=== PATIENT | female | born 1985 | race Caucasian/White ===

== ENCOUNTER 2017-05-10 14:44 | Emergency (ER) | payer SELFPAY ==
[2017-05-10] MEDS ORDERED: AZITHROMYCIN 250 MG TABLET PO ONE (14:56)
[2017-05-10] MEDS ORDERED: CEFTRIAXONE INJ 250 MG VIAL IM ONE (14:56)
--- NOTE | 2017-05-10 14:58 | ER Document Report ---
ED GI/ - General Chief Complaint: Urinary Problem Stated Complaint: URINARY PAIN Time Seen by Provider: 05/10/17 14:52 Mode of Arrival: Ambulatory Information source: Patient TRAVEL OUTSIDE OF THE [place] IN LAST 30 DAYS: No - HPI Patient complains to provider of: Dysuria, Pelvic pain Onset: Other - 2-3 days Timing/Duration: Persistent Quality of pain: Achy, Burning Severity at maximum: Moderate Severity in ED: Moderate Pain Level: 3 Location: Suprapubic Associated symptoms: Dysuria, Urinary frequency Exacerbated by: Denies Relieved by: Denies Similar symptoms previously: No Recently seen / treated by doctor: No Notes: 05/10/17 14:57 Patient is a 31-year-old female who presents to the emergency room complaining of one-week history of dysuria with urinary frequency and hesitancy, states she recently had unprotected sex but denies any abnormal vaginal discharge, denies any fevers, no nausea, vomiting or diarrhea - Related Data Allergies/Adverse Reactions: ondansetron HCl [From Zofran] Allergy (Verified 05/10/17 14:51) Past Medical History - General Information source: Patient - Social History Smoking Status: Current Every Day Smoker Family History: Reviewed & Not Pertinent - Past Medical History Cardiac Medical History: Pulmonary Medical History: Neurological Medical History: Renal/ Medical History: Reports: Hx Kidney Stones - Required lithotripsy. Denies: Hx Peritoneal Dialysis Musculoskeltal Medical History: Past Surgical History: Reports: Hx Abdominal Surgery - gastroschesis, Hx Appendectomy - Immunizations Hx Diphtheria, Pertussis, Tetanus Vaccination: Yes Review of Systems - Review of Systems Constitutional: No symptoms reported EENT: No symptoms reported Cardiovascular: No symptoms reported Respiratory: No symptoms reported Gastrointestinal: No symptoms reported Genitourinary: See HPI Female Genitourinary: No symptoms reported Musculoskeletal: No symptoms reported Skin: No symptoms reported Hematologic/Lymphatic: No symptoms reported Neurological/Psychological: No symptoms reported -: Yes All other systems reviewed and negative Physical Exam - Vital signs Vitals: Temp Pulse Resp BP Pulse Ox 97.9 F 87 16 132/89 H 99 05/10/17 14:49 05/10/17 14:49 05/10/17 14:49 05/10/17 14:49 05/10/17 14:49 - Notes Notes: - General General appearance: Appears well, Alert In distress: None - HEENT Head: Normocephalic, Atraumatic Eyes: Normal Conjunctiva: Normal Extraocular movements intact: Yes Eyelashes: Normal Pupils: PERRL - Respiratory Respiratory status: No respiratory distress - Cardiovascular Rhythm: Regular - Abdominal Inspection: Soft and nontender - Back Back: Normal, no CVA tenderness - Extremities General upper extremity: Normal inspection General lower extremity: Normal inspection - Neurological Neuro grossly intact: Yes Orientation: AAOx4 Pearce Coma Scale Eye Opening: Spontaneous César Coma Scale Verbal: Oriented César Coma Scale Motor: Obeys Commands César Coma Scale Total: 15 - Psychological Associated symptoms: Normal affect, Normal mood - Skin Skin Temperature: Warm Skin Moisture: Dry Skin Color: Normal Course - Re-evaluation Re-evalutation: 05/10/17 20:04 Lab findings were discussed with patient which are consistent for urinary tract infection, she was also treated for sexually transmitted diseases at her request , patient was discharged with instructions for follow-up and advised to return if any additional concerns, patient acknowledges understanding and agreement with this plan - Vital Signs Vital signs: Temp Pulse Resp BP Pulse Ox 97.7 F 65 16 127/88 H 100 05/10/17 16:07 05/10/17 16:07 05/10/17 16:07 05/10/17 16:07 05/10/17 16:07 - Laboratory Laboratory results interpreted by me: 05/10/17 15:13 Ur Leukocyte Esterase TRACE H Discharge - Discharge Clinical Impression: UTI (urinary tract infection) Qualifiers: Urinary tract infection type: site unspecified Hematuria presence: without hematuria Qualified Code(s): N39.0 - Urinary tract infection, site not specified Condition: Stable Disposition: HOME, SELF-CARE Instructions: Cephalexin ([facility]), Urinary Tract Infection ([facility]) Additional Instructions: Follow up with your primary care provider in one to 2 days. Return to the emergency room immediately if symptoms worsen or any additional concerns. Prescriptions: Cephalexin Monohydrate [Keflex 500 mg Capsule] 500 mg PO BID #20 capsule
[2017-05-10 15:43] LABS: APPEARANCE,URINE CLOUDY; BILIRUBIN,URINE NEGATIVE (NEGATIVE); GLUCOSE, URINE NEGATIVE (NEGATIVE); KETONES,URINE NEGATIVE (NEGATIVE); LEUKOCYTE ESTERASE,URINE TRACE (NEGATIVE); NITRITE,URINE NEGATIVE (NEGATIVE); PROTEIN,URINE NEGATIVE (NEGATIVE); URINE SPECIFIC GRAVITY 1.014; UROBILINOGEN,URINE NEGATIVE mg/dL (<2.0)
[2017-05-10 16:12] VITALS: BP 127/88
[2017-05-10 17:05] LABS: CHLAM PCR NOT DETECTED (NOT DETECT)
== END 2017-05-10 16:08 | disposition home or self-care (01) ==
LOC: ER 14:44
DX: N39.0 Urinary tract infection, site not specified (principal); F17.200 Nicotine dependence, unspecified, uncomplicated
CPT/HCPCS: 99283; 96372; 87086; 81025; 81001; 87491; 87591; J0696

== ENCOUNTER 2018-02-28 19:20 | Emergency (ER) | payer MEDICAID ==
[2018-02-28] MEDS ORDERED: NORMAL SALINE 1000 ML 1,000 ML IV ONE (20:03)
[2018-02-28] MEDS ORDERED: PROMETHAZINE HCL 25 MG TABLET PO ONE ×2 (20:04→21:34)
--- NOTE | 2018-02-28 20:05 | ER Document Report ---
ED Medical Screen (RME) - General Chief Complaint: Possible Kidney Stone Stated Complaint: LOWER BACK PAIN Time Seen by Provider: 02/28/18 20:03 Mode of Arrival: Ambulatory Information source: Patient Notes: This is a 32-year-old female with a history of kidney stones who presents to the emergency room with left flank pain for the past 5 days. Patient denies any fever, chills. She does complain of nausea. Her last normal menstrual period was approximately a month ago she states she may be . TRAVEL OUTSIDE OF THE [place] IN LAST 30 DAYS: No - Related Data Allergies/Adverse Reactions: ondansetron HCl [From Zofran] Allergy (Verified 05/10/17 14:51) Past Medical History - Social History Family history: Reviewed & Not Pertinent - Past Medical History Cardiac Medical History: Pulmonary Medical History: Neurological Medical History: Renal/ Medical History: Reports: Hx Kidney Stones - Required lithotripsy. Denies: Hx Peritoneal Dialysis Musculoskeltal Medical History: Past Surgical History: Reports: Hx Abdominal Surgery - gastroschesis, Hx Appendectomy - Immunizations Hx Diphtheria, Pertussis, Tetanus Vaccination: Yes Physical Exam - Vital signs Vitals: Temp Pulse Resp BP Pulse Ox 98.0 F 68 16 153/98 H 97 02/28/18 19:47 02/28/18 19:47 02/28/18 19:47 02/28/18 19:47 02/28/18 19:47 Course - Vital Signs Vital signs: Temp Pulse Resp BP Pulse Ox 98.0 F 68 16 153/98 H 97 02/28/18 19:47 02/28/18 19:47 02/28/18 19:47 02/28/18 19:47 02/28/18 19:47
[2018-02-28 21:00] LABS: ABSOLUTE BASOPHILS # (AUTO) 0.1 10^3/uL (0.0-0.2); ABSOLUTE EOSINOPHILS # (AUTO) 0.2 10^3/uL (0.0-0.6); ABSOLUTE LYMPHOCYTES (AUTO) 3.4 10^3/uL (0.5-4.7); ABSOLUTE MONOCYTES (AUTO) 0.7 10^3/uL (0.1-1.4); ABSOLUTE NEUT (AUTO) 6.2 10^3/uL (1.7-8.2); BASOPHILS % (AUTO) 0.5 % (0-2); EOSINOPHILS % (AUTO) 2.3 % (0-6); HEMATOCRIT 39.7 % (36.0-47.0); HEMOGLOBIN 13.7 g/dL (12.0-15.5); LYMPHOCYTES % (AUTO) 31.7 % (13-45); MEAN CORPUSCULAR HEMOGLOBIN 30.7 pg (27.0-33.4); MEAN CORPUSCULAR HGB CONC 34.5 g/dL (32.0-36.0); MEAN CORPUSCULAR VOLUME 89 fl (80-97); MONOCYTES % (AUTO) 6.9 % (3-13); PLATELET COUNT 313 10^3/uL (150-450); RED BLOOD COUNT 4.46 10^6/uL (3.72-5.28); RED CELL DISTRIBUTION WIDTH 15.9 % (11.5-14.0); SEGMENTED NEUTROPHILS % (AUTO) 58.6 % (42-78); TOTAL CELLS COUNTED % (AUTO) 100 %; WHITE BLOOD COUNT 10.7 10^3/uL (4.0-10.5)
[2018-02-28 21:05] LABS: APPEARANCE,URINE SLIGHTLY-CLOUDY; BILIRUBIN,URINE NEGATIVE (NEGATIVE); COLOR,URINE YELLOW; GLUCOSE, URINE NEGATIVE (NEGATIVE); KETONES,URINE NEGATIVE (NEGATIVE); LEUKOCYTE ESTERASE,URINE TRACE (NEGATIVE); NITRITE,URINE NEGATIVE (NEGATIVE); PROTEIN,URINE NEGATIVE (NEGATIVE); URINE SPECIFIC GRAVITY 1.018
[2018-02-28 21:20] LABS: ALANINE AMINOTRANSFERASE 20 U/L (9-52); ALBUMIN 4.1 g/dL (3.5-5.0); ALKALINE PHOSPHATASE 76 U/L (38-126); ANION GAP 8 (5-19); ASPARTATE AMINO TRANSFERASE 23 U/L (14-36); BILIRUBIN,DIRECT 0.3 mg/dL (0.0-0.4); BILIRUBIN,TOTAL 0.3 mg/dL (0.2-1.3); BLOOD UREA NITROGEN 14 mg/dL (7-20); CALCIUM 9.7 mg/dL (8.4-10.2); CARBON DIOXIDE 26 mmol/L (22-30); CHLORIDE 105 mmol/L (98-107); GLUCOSE 89 mg/dL (75-110); POTASSIUM 4.3 mmol/L (3.6-5.0); SODIUM 139.1 mmol/L (137-145); TOTAL PROTEIN 6.7 g/dL (6.3-8.2)
[2018-02-28] MEDS ORDERED: KETOROLAC TROMETHAMINE INJ/PF 30 MG/1 ML SDV IV ONE (21:34)
[2018-02-28] MEDS ORDERED: SULFAMETHOXAZOLE/TRIMETHOPRIM 800-160 MG TABLET PO ONE (21:34)
[2018-02-28] MEDS ORDERED: HYDROMORPHONE HCL INJ/PF 2 MG/ML AMPULE IV ONE ×2 (21:35→22:18)
--- NOTE | 2018-02-28 21:40 | ER Document Report ---
ED General - General Chief Complaint: Possible Kidney Stone Stated Complaint: LOWER BACK PAIN Time Seen by Provider: 02/28/18 20:03 Mode of Arrival: Ambulatory Information source: Patient Notes: 32-year-old female with history of gastroschisis, previous kidney stones, previous prescription drug abuse, chronic back pain presents with complaint of left flank pain that started 5 days prior to arrival. Patient describes the pain as constant, throbbing and not relieved with Tylenol. Patient states that she last had a kidney stone approximately 2 years prior to arrival which required lithotripsy. Patient also complaining of dysuria that also started 5 days prior to arrival. She denies any fever, chills, nausea, vomiting, vaginal discharge. She denies any injury to her back. TRAVEL OUTSIDE OF THE [place] IN LAST 30 DAYS: No - HPI Onset: Other Onset/Duration: Sudden, Persistent, Worse Quality of pain: Burning, Stabbing, Throbbing Severity: Moderate Associated symptoms: denies: Chest pain, Nausea, Vomiting Exacerbated by: Movement Relieved by: Denies Similar symptoms previously: Yes Recently seen / treated by doctor: No - Related Data Allergies/Adverse Reactions: ondansetron HCl [From Zofran] Allergy (Verified 05/10/17 14:51) Past Medical History - General Information source: Patient - Social History Smoking Status: Current Every Day Smoker Chew tobacco use (# tins/day): No Smoking Education Provided: Yes - Patient counselled regarding cessation for 4 minutes Frequency of alcohol use: Occasional Drug Abuse: None Lives with: Spouse/Significant other Family History: Reviewed & Not Pertinent Patient has suicidal ideation: No Patient has homicidal ideation: No - Past Medical History Cardiac Medical History: Pulmonary Medical History: Neurological Medical History: Renal/ Medical History: Reports: Hx Kidney Stones - Required lithotripsy. Denies: Hx Peritoneal Dialysis Musculoskeltal Medical History: Past Surgical History: Reports: Hx Abdominal Surgery - gastroschesis, Hx Appendectomy - Immunizations Hx Diphtheria, Pertussis, Tetanus Vaccination: Yes Review of Systems - Review of Systems Notes: REVIEW OF SYSTEMS: CONSTITUTIONAL : Denies fever, chills, or sweats. Denies recent illness. Denies weight loss, recent hospitalizations. EENT: Denies visula changes, eye pain. Denies nasal or sinus congestion or discharge. Denies sore throat, oral lesions, difficulty swallowing. CARDIOVASCULAR: Denies chest pain. Denies palpitations or racing or irregular heart beat. Denies lower extremity edema. RESPIRATORY: Denies cough, cold, or chest congestion. Denies shortness of breath, difficulty breathing, or wheezing. GASTROINTESTINAL: Denies abdominal distention. Denies nausea, vomiting, or diarrhea. Denies blood in vomitus, stools, or per rectum. Denies black, tarry stools. Denies constipation. GENITOURINARY: Denies difficulty urinating, frequency, blood in urine, or vaginal discharge. MUSCULOSKELETAL: Denies neck pain or stiffness. Denies joint pain or swelling. SKIN: Denies rash, lesions or sores. HEMATOLOGIC : Denies easy bruising or bleeding. LYMPHATIC: Denies swollen, enlarged glands. NEUROLOGICAL: Denies confusion or altered mental status. Denies passing out or loss of consciousness. Denies dizziness or lightheadedness. Denies headache. Denies weakness or paralysis or loss of use of either side. Denies problems with gait or speech. Denies sensory loss, numbness, or tingling. Denies seizures. PSYCHIATRIC: Denies anxiety or stress. Denies depression, suicidal ideation, or homicidal ideation. Physical Exam - Vital signs Vitals: Temp Pulse Resp BP Pulse Ox 98.0 F 68 16 153/98 H 97 02/28/18 19:47 02/28/18 19:47 02/28/18 19:47 02/28/18 19:47 02/28/18 19:47 Interpretation: Normal, Hypertensive. No: Febrile - Notes Notes: PHYSICAL EXAMINATION: GENERAL: Well-appearing, well-nourished and in no acute distress. HEAD: Atraumatic, normocephalic. EYES: Pupils equal round and reactive to light, extraocular movements intact, conjunctiva are normal. ENT: Nares patent, oropharynx clear without exudates. Moist mucous membranes. NECK: Normal range of motion, supple without lymphadenopathy LUNGS: Breath sounds clear to auscultation bilaterally and equal. No wheezes rales or rhonchi. HEART: Regular rate and rhythm without murmurs ABDOMEN: Soft, nontender, nondistended abdomen. No guarding, no rebound. No masses appreciated. Female : deferred Musculoskeletal: Normal range of motion, no pitting or edema. No cyanosis. Left CVA tenderness NEUROLOGICAL: Cranial nerves grossly intact. Normal speech, normal gait. Normal sensory, motor exams PSYCH: Normal mood, normal affect. SKIN: Warm, Dry, normal turgor, no rashes or lesions noted. Course - Re-evaluation Re-evalutation: Laboratory 02/28/18 02/28/18 02/28/18 20:08 20:08 20:08 WBC 10.7 H RBC 4.46 Hgb 13.7 Hct 39.7 MCV 89 MCH 30.7 MCHC 34.5 RDW 15.9 H Plt Count 313 Seg Neutrophils % 58.6 Lymphocytes % 31.7 Monocytes % 6.9 Eosinophils % 2.3 Basophils % 0.5 Absolute Neutrophils 6.2 Absolute Lymphocytes 3.4 Absolute Monocytes 0.7 Absolute Eosinophils 0.2 Absolute Basophils 0.1 Sodium 139.1 Potassium 4.3 Chloride 105 Carbon Dioxide 26 Anion Gap 8 BUN 14 Creatinine 0.81 Est GFR ( Amer) > 60 Est GFR (Non-Af Amer) > 60 Glucose 89 Calcium 9.7 Total Bilirubin 0.3 Direct Bilirubin 0.3 Neonat Total Bilirubin Not Reportable Neonat Direct Bilirubin Not Reportable Neonat Indirect Bili Not Reportable AST 23 ALT 20 Alkaline Phosphatase 76 Total Protein 6.7 Albumin 4.1 Urine Color YELLOW Urine Appearance SLIGHTLY-CLOUDY Urine pH 5.0 Ur Specific Ulen 1.018 Urine Protein NEGATIVE Urine Glucose (UA) NEGATIVE Urine Ketones NEGATIVE Urine Blood NEGATIVE Urine Nitrite NEGATIVE Urine Bilirubin NEGATIVE Urine Urobilinogen 2.0 H Ur Leukocyte Esterase TRACE H Urine WBC (Auto) 12 Urine RBC (Auto) 1 U Hyaline Cast (Auto) 1 Urine Bacteria (Auto) TRACE Squamous Epi Cells Auto 3 Urine Mucus (Auto) OCC Urine Ascorbic Acid NEGATIVE Urine HCG, Qual NEGATIVE 02/28/18 21:39 32-year-old female with history of gastroschisis, previous kidney stone, chronic back pain, prescription drug abuse, presents with complaint of left flank pain that started 5 days prior to arrival. Patient describes the pain as constant, throbbing and not relieved with Tylenol. Patient states that she last had a kidney stone approximately 2 years prior to arrival which required lithotripsy. Patient also complaining of dysuria that also started 5 days prior to arrival. Patient was seen by myself upon arrival. Vital signs were reviewed. Patient is afebrile, hypertensive and not hypoxic. Patient does not appear toxic or dehydrated. They are in no acute distress. Previous medical records and nursing notes reviewed. Significant findings include left CVA tenderness. Bedside ultrasound performed to assess for hydro-nephrosis which is absent. Urinalysis does not show blood, does show trace leuk esterase. CBC is without leukocytosis. CMP is without electrolyte abnormalities. Patient has normal renal function. Patient was provided IV Toradol, Dilaudid, p.o. Phenergan and p.o. Bactrim. 02/28/18 22:18 On reevaluation patient reports an improvement of pain although she states it still present. There is no evidence of urolithiasis, hydronephrosis. Patient will be treated with Bactrim and Motrin, and flexeril for home. Patient provided the opportunity to ask questions, and express concerns. Discharge instructions discussed. Patient is agreeable with discharge home. Return indications explained and discussed with the patient who displays understanding. Patient encouraged to return to the emergency department immediately with any concerns. 02/28/18 23:52 - Vital Signs Vital signs: Temp Pulse Resp BP Pulse Ox 98.4 F 70 12 134/93 H 100 02/28/18 22:37 02/28/18 22:37 02/28/18 22:37 02/28/18 22:37 02/28/18 22:37 - Laboratory Result Diagrams: 02/28/18 20:08 02/28/18 20:08 Laboratory results interpreted by me: 02/28/18 02/28/18 20:08 20:08 WBC 10.7 H RDW 15.9 H Urine Urobilinogen 2.0 H Ur Leukocyte Esterase TRACE H Procedures - Ultrasound/Bedside Ultrasound/Bedside Time completed: 21:38 - Bedside ultrasound of the kidneys were performed to assess for hydronephrosis. No hydronephrosis seen. Discharge - Discharge Clinical Impression: Left flank pain UTI (urinary tract infection) Qualifiers: Urinary tract infection type: site unspecified Hematuria presence: without hematuria Qualified Code(s): N39.0 - Urinary tract infection, site not specified Condition: Good Disposition: HOME, SELF-CARE Instructions: Flank Pain ([facility]), Trimethoprim-Sulfa ([facility]), Urinary Tract Infection ([facility]) Additional Instructions: Follow up with your physician tomorrow for further care or return to the ED IMMEDIATELY if symptoms worsen or new concerns occur. If you cannot afford to follow up with your primary care physician a list of low cost clinics have been provided at the end of your discharge papers as well. Prescriptions: Cyclobenzaprine HCl [Flexeril 10 mg Tablet] 10 mg PO TIDP PRN #15 tab PRN Reason: Ibuprofen [Motrin 600 Mg Tablet] 600 mg PO TID #15 tablet Sulfamethoxazole/Trimethoprim [Bactrim Ds Tablet] 1 each PO BID #10 tablet Forms: Elevated Blood Pressure, Smoking Cessation Education Referrals: INDIRA FULLER MD [Primary Care Provider] - Follow up in 3-5 days
[2018-02-28 22:40] VITALS: BP 134/93
== END 2018-02-28 22:39 | disposition home or self-care (01) ==
LOC: ER 19:20
DX: N39.0 Urinary tract infection, site not specified (principal); R10.9 Unspecified abdominal pain; G89.29 Other chronic pain; M54.9 Dorsalgia, unspecified; F17.200 Nicotine dependence, unspecified, uncomplicated; Z87.442 Personal history of urinary calculi
CPT/HCPCS: 96376; 99406; 99284; 96361; 96374; 96375; 36415; 85025; 81025; 80053; 81001; J1885; J1170; J3490 ×2; J7030

== ENCOUNTER 2018-07-04 08:06 | Emergency (ER) | payer MEDICAID ==
[2018-07-04] MEDS ORDERED: NORMAL SALINE 500 ML IV ONE (08:44)
[2018-07-04 08:53] LABS: ABSOLUTE BASOPHILS # (AUTO) 0.1 10^3/uL (0.0-0.2); ABSOLUTE EOSINOPHILS # (AUTO) 0.1 10^3/uL (0.0-0.6); ABSOLUTE LYMPHOCYTES (AUTO) 2.2 10^3/uL (0.5-4.7); ABSOLUTE MONOCYTES (AUTO) 1.3 10^3/uL (0.1-1.4); ABSOLUTE NEUT (AUTO) 13.3 10^3/uL (1.7-8.2); BASOPHILS % (AUTO) 0.6 % (0-2); EOSINOPHILS % (AUTO) 0.7 % (0-6); HEMATOCRIT 48.4 % (36.0-47.0); HEMOGLOBIN 16.4 g/dL (12.0-15.5); LYMPHOCYTES % (AUTO) 13.2 % (13-45); MEAN CORPUSCULAR HGB CONC 33.9 g/dL (32.0-36.0); MEAN CORPUSCULAR VOLUME 91 fl (80-97); MONOCYTES % (AUTO) 7.4 % (3-13); PLATELET COUNT 355 10^3/uL (150-450); RED BLOOD COUNT 5.29 10^6/uL (3.72-5.28); RED CELL DISTRIBUTION WIDTH 13.7 % (11.5-14.0); SEGMENTED NEUTROPHILS % (AUTO) 78.1 % (42-78); TOTAL CELLS COUNTED % (AUTO) 100 %
[2018-07-04] MEDS ORDERED: HYDROMORPHONE HCL INJ/PF 2 MG/ML AMPULE IV ONE ×3 (08:55→18:58)
[2018-07-04] MEDS ORDERED: PROMETHAZINE HCL INJ 25 MG/1 ML VIAL IV ONE ×2 (08:55→18:58)
[2018-07-04] MEDS ORDERED: NORMAL SALINE 1000 ML 1,000 ML IV PRN (08:56)
[2018-07-04 09:19] LABS: ALANINE AMINOTRANSFERASE 17 U/L (9-52); ALBUMIN 4.7 g/dL (3.5-5.0); ALKALINE PHOSPHATASE 85 U/L (38-126); ANION GAP 10 (5-19); ASPARTATE AMINO TRANSFERASE 25 U/L (14-36); BILIRUBIN,DIRECT 0.3 mg/dL (0.0-0.4); BILIRUBIN,TOTAL 0.8 mg/dL (0.2-1.3); BLOOD UREA NITROGEN 8 mg/dL (7-20); CALCIUM 10.5 mg/dL (8.4-10.2); CARBON DIOXIDE 25 mmol/L (22-30); CHLORIDE 106 mmol/L (98-107); GLUCOSE 121 mg/dL (75-110); LIPASE 38.5 U/L (23-300); POTASSIUM 4.3 mmol/L (3.6-5.0); SODIUM 141.1 mmol/L (137-145); TOTAL PROTEIN 7.6 g/dL (6.3-8.2)
[2018-07-04 11:52] LABS: AMORPHOUS SEDIMENT,URINE TRACE /HPF; APPEARANCE,URINE CLEAR; BILIRUBIN,URINE NEGATIVE (NEGATIVE); COLOR,URINE YELLOW; GLUCOSE, URINE NEGATIVE (NEGATIVE); KETONES,URINE 25 mg/dL (NEGATIVE); LEUKOCYTE ESTERASE,URINE NEGATIVE (NEGATIVE); NITRITE,URINE NEGATIVE (NEGATIVE); PROTEIN,URINE NEGATIVE (NEGATIVE); UROBILINOGEN,URINE NEGATIVE mg/dL (<2.0)
[2018-07-04 11:55] LABS: URINE SPECIFIC GRAVITY 1.018
--- NOTE | 2018-07-04 12:38 | RADIOLOGY REPORT (SQ) ---
EXAM DESCRIPTION: ACUTE ABDOMEN SERIES COMPLETED DATE/TIME: 07/04/2018 12:25 pm REASON FOR STUDY: sudden onsedt pain ? SBO VS perf/ HX gastosessis COMPARISON: CT abdomen pelvis 04/03/2016 Abdominal films 04/06/2016, 04/04/2016 NUMBER OF VIEWS: Three views. TECHNIQUE: Frontal chest, supine abdomen and upright abdomen radiographic images acquired. LIMITATIONS: None. FINDINGS: CHEST: Lungs clear of infiltrates. Cardiac silhouette size, margie, bony structures unremar kable. FREE AIR: None. No abnormal gas collections. BOWEL GAS PATTERN: Dilated small bowel loops in the mid abdomen. Stomach and colon are decompressed. CALCIFICATIONS: No suspicious calcifications. HARDWARE: There are surgical clips in the abdomen. SOFT TISSUES: No gross mass or suggestion of organomegaly. BONES: No acute fracture. No worrisome bone lesions. OTHER: No other significant finding. IMPRESSION: Dilated small bowel loops in the mid abdomen worrisome for early or partial small bowel obstruction TECHNICAL DOCUMENTATION: JOB ID: [id number] [employer]- All Rights Reserved Reading location - IP/workstation name: [email or web address]
--- NOTE | 2018-07-04 13:41 | ER Document Report ---
ED GI/ - General Chief Complaint: Abdominal Pain Stated Complaint: NAUSEA/VOMITING Time Seen by Provider: 07/04/18 08:50 Mode of Arrival: Ambulatory Notes: Patient is a 32-year-old female comes emergency room complaining of onset of abdominal pain which started yesterday. Has progressively gotten worse. She cannot find a position of comfort and she denies nausea vomiting or diarrhea at this time. Patient has had a cholecystectomy and appendectomy her last bowel movement was 2 days ago. She states that her bowel movements normally come about every 2 days she had a normal one for her. Last menstrual period was 1 week ago. Patient has a significant history for gastroschisis. She has multiple scars on the anterior abdomen. She has had a history of SBO's in the past. She denies any other medical problems. TRAVEL OUTSIDE OF THE [place] IN LAST 30 DAYS: No - HPI Patient complains to provider of: Abdominal pain Onset: Yesterday Timing/Duration: Sudden, Persistent, Worse Quality of pain: Achy, Throbbing Severity at maximum: Severe Severity in ED: Severe Pain Level: 4 Location: LUQ, LLQ, RUQ, RLQ Vaginal bleeding (Compared to normal period): None LMP: Last week Associated symptoms: None, Chills Exacerbated by: Denies Relieved by: Denies Similar symptoms previously: Yes Recently seen / treated by doctor: No - Related Data Allergies/Adverse Reactions: ondansetron HCl [From Zofran] Allergy (Verified 07/04/18 08:54) Past Medical History - General Information source: Patient - Social History Smoking Status: Current Every Day Smoker Chew tobacco use (# tins/day): No Frequency of alcohol use: None Drug Abuse: None Family History: Reviewed & Not Pertinent Patient has suicidal ideation: No Patient has homicidal ideation: No - Medical History Medical History: Negative - Past Medical History Cardiac Medical History: Pulmonary Medical History: Neurological Medical History: Renal/ Medical History: Reports: Hx Kidney Stones - Required lithotripsy. Denies: Hx Peritoneal Dialysis Musculoskeletal Medical History: Past Surgical History: Reports: Hx Abdominal Surgery - gastroschesis, Hx Appendectomy, Hx Cholecystectomy - Immunizations Hx Diphtheria, Pertussis, Tetanus Vaccination: Yes Review of Systems - Review of Systems Constitutional: No symptoms reported EENT: No symptoms reported Cardiovascular: No symptoms reported Respiratory: No symptoms reported Gastrointestinal: See HPI, Abdomen distended, Abdominal pain, Nausea. denies: Vomiting, Constipation Genitourinary: No symptoms reported Female Genitourinary: No symptoms reported Musculoskeletal: No symptoms reported Skin: No symptoms reported Hematologic/Lymphatic: No symptoms reported Neurological/Psychological: No symptoms reported -: Yes All other systems reviewed and negative Physical Exam - Vital signs Vitals: Temp Pulse Resp BP Pulse Ox 98.3 F 76 18 148/91 H 100 07/04/18 08:10 07/04/18 08:10 07/04/18 08:10 07/04/18 08:10 07/04/18 08:10 Interpretation: Hypertensive - Notes Notes: Patient is a well-nourished well-developed 32-year-old female who is in mild to moderate distress and discomfort. - General General appearance: Alert, Anxious In distress: Mild - HEENT Head: Atraumatic Eyes: Normal Conjunctiva: Normal - Respiratory Respiratory status: No respiratory distress Chest status: Nontender Breath sounds: Normal. No: Rales, Rhonchi, Stridor, Wheezing Chest palpation: Normal - Cardiovascular Rhythm: Regular Heart sounds: Normal auscultation Murmur: No - Abdominal Distension: Distended, Tympanitic, Other - Examination of patient's abdomen shows multiple scarring on the anterior portion of the abdomen all the way up to about the mid epigastric region. This is secondary to the gastroparesis. Patient has also history of small bowel obstructions secondary to the adhesions suffered from this type of surgery. Exam today shows that she is distended she is tympanic in all quads. Belly is somewhat firm but not rigid. She does have bowel sounds currently although there is exceptionally hypo-in their presentation. - Back Back: Normal, Nontender - Neurological Cognition: Normal Orientation: AAOx4 César Coma Scale Eye Opening: Spontaneous [place] Coma Scale Verbal: Oriented [place] Coma Scale Motor: Obeys Commands César Coma Scale Total: 15 Speech: Normal Motor strength normal: LUE, RUE, LLE, RLE Sensory: Normal Course - Re-evaluation Re-evalutation: 07/04/18 14:18 Patient's course has been pretty consistent. Her presentation was that of a small bowel obstruction. An acute abdominal series that showed that she has dilated small bowel loops in the mid abdomen worrisome for early or partial small bowel obstruction. I have not placed a NG tube secondary to patient not vomiting currently. I am going to attempt to call the hospitalist to see about admission without a CT. If he or she requests 1 we will run it and have her admitted then. 07/04/18 18:34 I had originally contacted the hospitalist for possible admission for a small bowel obstruction or partial small bowel obstruction with a white count of 17, 000 and a KUB that showed a questionable partial. They requested that I do a CT with contrast both oral and IV and if it was true bowel obstruction then to call them back. The CT came back as showing that there was no small bowel obstruction. I discussed it with my attending Dr. Snell he suggested that we just run this by the surgeon. I contacted Dr. Yeung and told him that I was not real familiar with gastroschisis and wanted to know what he thought then could he look at the CT. He looked at the CT and told me with out any question she does not have a small bowel obstruction. When I discussed the findings of the 17,000 white count with him he actually answered me he could not tell me because he was not seeing the patient which I understand. He asked if I got a urine and I answered yes that was okay and he said I cannot really tell you except in a light bulb went off in his head that he and a few other of his surgical friends have done exploratory laparotomies recently and they found nothing in no one check to see if there was any sense PID. Most of his patients that had this pain and discomfort had PID that was not checked for. So I went back into the room and discussed it with patient she said she does have a discharge that is worse than her waistline. I suggested that I be looking for chlamydia gonorrhea and vaginosis and she said there is no way because have been with him for ever and so she did allow us to do the pelvic exam. The results are pending on the chlamydia and gonorrhea and the bacterial vaginosis screens. We will further investigate if any of those come back positive. 07/04/18 19:37 It is now 1935 patient is been here for an extensive period of time. We did finally do a pelvic exam on patient and lab finally called telling us that there was trichomonas. I originally ordered for of the metronidazole 500 however on second thought that upsets his stomach very badly so patient is going to get treated outpatient for PID. I already ordered the gram of Rocephin as I cannot reduce it now to 250 because he is already been ordered and given. So I am going to add on metronidazole 500 mg twice daily for 14 days and doxycycline 100 mg p.o. for 14 days. This will cover her fairly well. She had originally told me there is no way this can happen when I went back into talk to her about it she did not seem real upset that this is what we found. This is probably was all causing her discomfort and pain 2. So we are treating her that way I will give her a couple of days of pain medication and nausea medication and she can follow-up with her primary. - Vital Signs Vital signs: Temp Pulse Resp BP Pulse Ox 98.3 F 76 18 148/91 H 100 07/04/18 08:10 07/04/18 08:10 07/04/18 08:10 07/04/18 08:10 07/04/18 08:10 - Laboratory Result Diagrams: 07/04/18 08:40 07/04/18 08:40 Laboratory results interpreted by me: 07/04/18 07/04/18 07/04/18 08:40 08:40 11:13 WBC 17.0 H RBC 5.29 H Hgb 16.4 H Hct 48.4 H Seg Neutrophils % 78.1 H Absolute Neutrophils 13.3 H Glucose 121 H Calcium 10.5 H Urine Ketones 25 H Urine Blood SMALL H Procedures - Pelvic Exam Pelvic exam Cultures obtained: Yes Wet prep obtained: Yes - Patient had a whitish slightly odiferous discharge. Herpes culture obtained: No POC sent to lab: Yes Foreign body removed: No Bimanual exam performed: Yes - Bimanual exam showed she had some very mild CMT Witnessed by: Rupali Notes: 07/04/18 18:3 07/04/18 18:33 Patient's pelvic exam showed that she had some very mild CMT. She had a white difference discharge that was questionable for a vaginosis type presentation. Patient tells me she has been monogamous with this gentleman for quite a while so she does not believe there is anything wrong. Discharge - Discharge Clinical Impression: PID (acute pelvic inflammatory disease), Abdominal pain Condition: Stable Instructions: Abdominal Pain ([facility]), Pelvic Inflammatory Disease ([facility]) Additional Instructions: Home and rest. Medication as prescribed. As of indicated to you the labs that we did of the pelvic exam came back showing that you have trichomonas. This is just one part of PID so we are deciding to treat you for all of PID which is gonorrhea chlamydia as well because the samples will be back until later this evening and to keep you here for that length of time anymore. Do not forget that no matter if it is just the trichomonas or more things like gonorrhea and chlamydia but all are curable but you both have to be treated. You are contagious even up to a week after starting the antibiotics. So you need to both be treated and at least wait a total of 2 weeks not have any sexual relations and then he should be okay and not spreading it back and forth. Should you have any concerns or problems she can return to ER for recheck. I highly suggest that you reestablish or follow-up with the [facility] if you have 1. Prescriptions: Doxycycline Hyclate 100 mg PO BID #14 capsule Metronidazole 500 mg PO BID #14 tablet Oxycodone HCl/Acetaminophen [Percocet 5-325 mg Tablet] 1 tab PO Q4H PRN #10 tablet PRN Reason: Promethazine HCl [Phenergan 25 mg Tablet] 1 - 2 tab PO Q6H PRN #15 tablet PRN Reason: Referrals: INDIRA FULLER MD [Primary Care Provider] - Follow up as needed
--- NOTE | 2018-07-04 17:42 | RADIOLOGY REPORT (SQ) ---
EXAM DESCRIPTION: CT ABD/PELVIS WITH IV ORAL COMPLETED DATE/TIME: 07/04/2018 4:54 pm REASON FOR STUDY: sbo COMPARISON: None. TECHNIQUE: CT scan of the abdomen and pelvis performed using helical scanning technique with dynamic intravenous contrast injection. Oral contrast. Images reviewed with lung, soft tissue, and bone win dows. Reconstructed coronal and sagittal MPR images reviewed. Delayed images for evaluation of the ur inary system also acquired. All images stored on PACS. All CT scanners at this facility use dose modulation, iterative reconstruction, and/or weight based d osing when appropriate to reduce radiation dose to as low as reasonably achievable (ALARA). [facility]: Dose Right [facility]: CareDose [facility]: Dose Right [facility]: Teradose 4D [facility]: [facility] CONTRAST TYPE AND DOSE: contrast/concentration: Isovue mg/ml; Total Contrast Delivered: 58.0 ml; To lily Saline Delivered: 27.4 ml RENAL FUNCTION: BUN 8 creatinine 0.8 RADIATION DOSE: CT Rad equipment meets quality standard of care and radiation dose reduction techniq ues were employed. CTDIvol: 5.0 - 5.7 mGy. DLP: 563 mGy-cm.. LIMITATIONS: None. FINDINGS: LOWER CHEST: No significant findings. No nodules or infiltrates. LIVER: Normal size. No masses. No dilated ducts. SPLEEN: Normal size. No focal lesions. PANCREAS: No masses. No significant calcifications. No adjacent inflammation or peripancreatic fluid collections. Pancreatic duct not dilated. GALLBLADDER: Surgically absent. ADRENAL GLANDS: No significant masses or asymmetry. RIGHT KIDNEY AND URETER: No solid masses. No significant calcifications. No hydronephrosis or hyd roureter. LEFT KIDNEY AND URETER: No solid masses. No significant calcifications. No hydronephrosis or hydr oureter. AORTA AND VESSELS: No aneurysm. No dissection. Renal arteries, SMA, celiac without stenosis. RETROPERITONEUM: No retroperitoneal adenopathy, hemorrhage or masses. BOWEL AND PERITONEAL CAVITY: Contrast is present throughout the small bowel. There is small amount o f oral contrast in the large bowel. The overall appearance does not suggest bowel obstruction. No m ass is seen. APPENDIX: Surgically absent. PELVIS: No mass. No free fluid. Normal bladder. ABDOMINAL WALL: No masses. No hernias. BONES: No significant or acute findings. OTHER: No other significant finding. IMPRESSION: NO SIGNIFICANT OR ACUTE FINDING IN THE ABDOMEN OR PELVIS ON CT SCAN WITH IV CONTRAST. TECHNICAL DOCUMENTATION: JOB ID: [id number] Quality ID # [id number]: Final reports with documentation of one or more dose reduction techniques (e.g., Au tomated exposure control, adjustment of the mA and/or kV according to patient size, use of iterative reconstruction technique) 2010 [employer]- All Rights Reserved Reading location - IP/workstation name: [email or web address]
[2018-07-04] MEDS ORDERED: CEFTRIAXONE 1 GM/D5W RTU 1 GM/50 ML RTUPB IV ONE (19:00)
[2018-07-04 19:17] LABS: BACTERIA (WET MOUNT) 4+ BACTERIA SEEN; EPITHELIALS (WET MOUNT) 4+ EPITHELIALS SEEN; RBCS (WET MOUNT) 2+ RBCS SEEN; T.VAGINALIS (WET MOUNT) TRICHOMONAS SEEN; WBCS (WET MOUNT) 3+ WBCS SEEN; YEAST (WET MOUNT) NO YEAST SEEN
[2018-07-04] MEDS ORDERED: METRONIDAZOLE 500 MG TABLET PO ONE (19:26)
[2018-07-04] MEDS ORDERED: DIPHENHYDRAMINE HCL 25 MG CAPSULE PO ONE (19:52)
[2018-07-04 20:06] VITALS: BP 132/95
[2018-07-04 20:43] LABS: CHLAM PCR NOT DETECTED (NOT DETECT); GON PCR DETECTED (NOT DETECT)
== END 2018-07-04 20:20 | disposition home or self-care (01) ==
LOC: ER 08:06
DX: N73.9 Female pelvic inflammatory disease, unspecified (principal); R10.9 Unspecified abdominal pain; R11.2 Nausea with vomiting, unspecified; F17.200 Nicotine dependence, unspecified, uncomplicated; Z90.49 Acquired absence of other specified parts of digestive tract; Z87.442 Personal history of urinary calculi
CPT/HCPCS: 96376; 99285; 96361; 96375; 96365; 36415; 87040; 87210; 83690; 84703; 85025; 81025; 80053; 81001; 87491; 87591; 83605; 74022; 74177; J3490 ×2; J1170; J2550; J7030; J0696

== ENCOUNTER 2018-08-20 11:29 | Emergency (ER) | payer MEDICAID ==
[2018-08-20] MEDS ORDERED: TETRACAINE HCL 0.5% OPH SOLN 4 ML OU ONE (11:39)
[2018-08-20] MEDS ORDERED: KETOROLAC TROMETHAMINE 0.45% 4 DROP/0.4 ML DROPERETTE OU ONE (12:38)
--- NOTE | 2018-08-20 12:43 | ER Document Report ---
ED Eye Complaint - General Chief Complaint: Eye Problem Stated Complaint: EYE PAIN Time Seen by Provider: 08/20/18 11:46 Mode of Arrival: Ambulatory Information source: Patient Notes: 32-year-old female presented to ED for complaint of bilateral red painful itchy draining eyes. She states that she has had this redness and pain and itching for 2 weeks. She states she used her boyfriend's antibiotic eyedrops which caused her pain to get worse not better. She claims she has blurry numbness to her vision. She denies any use of contact lenses or glasses. She is alert and oriented respirations regular and unlabored speaking in full sentences. She states her eyes feel like they have a lot of splinters in the eyelids. TRAVEL OUTSIDE OF THE [place] IN LAST 30 DAYS: No - HPI Onset: Other Eye location: Bilateral - 2 weeks Injury: No Quality of pain: Achy, Burning, Pressure Severity: Moderate Pain Level: 3 Associated symptoms: Burning, Itching, Pain, Redness, Matting, Blurred vision - Related Data Allergies/Adverse Reactions: ondansetron HCl [From Zofran] Allergy (Verified 07/04/18 08:54) Past Medical History - General Information source: Patient - Social History Smoking Status: Current Every Day Smoker Cigarette use (# per day): Yes - 1/2 pack/day Chew tobacco use (# tins/day): No Smoking Education Provided: Yes - 4 minutes Frequency of alcohol use: None Drug Abuse: None Lives with: Alone - Children Family History: Reviewed & Not Pertinent Patient has suicidal ideation: No Patient has homicidal ideation: No - Past Medical History Cardiac Medical History: Reports: None Pulmonary Medical History: Reports: None EENT Medical History: Reports: None Neurological Medical History: Reports: None Endocrine Medical History: Reports: None Renal/ Medical History: Reports: Hx Kidney Stones - Required lithotripsy Malignancy Medical History: Reports: None GI Medical History: Reports: None Musculoskeletal Medical History: Reports None Skin Medical History: Reports None Psychiatric Medical History: Reports: None Traumatic Medical History: Reports: None Infectious Medical History: Reports: None Past Surgical History: Reports: Hx Abdominal Surgery - gastroschesis, Hx Appendectomy, Hx Cholecystectomy - Immunizations Immunizations up to date: Yes Hx Diphtheria, Pertussis, Tetanus Vaccination: Yes Review of Systems - Review of Systems Notes: REVIEW OF SYSTEMS: CONSTITUTIONAL : Denies fever, chills, or sweats. Denies recent illness. EENT: Complains of red swollen painful itchy burning matted eyes for the last 2 weeks. States she took her boyfriend's eyedrops and they became worse. Did not follow-up with a primary doctor. Denies ear, throat, or mouth pain or symptoms. Denies nasal or sinus congestion or discharge. Denies throat, tongue , or mouth swelling or difficulty swallowing. CARDIOVASCULAR: Denies chest pain. Denies palpitations or racing or irregular heart beat. Denies ankle edema. RESPIRATORY: Denies cough, cold, or chest congestion. Denies shortness of breath, difficulty breathing, or wheezing. GASTROINTESTINAL: Denies abdominal pain or distention. Denies nausea, vomiting , or diarrhea. Denies blood in vomitus, stools, or per rectum. Denies black, tarry stools. Denies constipation. GENITOURINARY: Denies difficulty urinating, painful urination, burning, frequency, blood in urine, or discharge. FEMALE GENITOURINARY: Denies vaginal bleeding, heavy or abnormal periods, irregular periods. Denies vaginal discharge or odor. MUSCULOSKELETAL: Denies back or neck pain or stiffness. Denies joint pain or swelling. SKIN: Denies rash, lesions or sores. HEMATOLOGIC : Denies easy bruising or bleeding. LYMPHATIC: Denies swollen, enlarged glands. NEUROLOGICAL: Denies confusion or altered mental status. Denies passing out or loss of consciousness. Denies dizziness or lightheadedness. Denies headache. Denies weakness or paralysis or loss of use of either side. Denies problems with gait or speech. Denies sensory loss, numbness, or tingling. Denies seizures. PHYSICAL EXAMINATION: GENERAL: Well-appearing, well-nourished and in no acute distress. HEAD: Atraumatic, normocephalic. EYES: Pupils equal round and reactive to light, extraocular movements intact, red inflamed conjunctival bilaterally. Edema to the eyelids. ENT: Nares patent, oropharynx clear without exudates. Moist mucous membranes. NECK: Normal range of motion, supple without lymphadenopathy LUNGS: Breath sounds clear to auscultation bilaterally and equal. No wheezes rales or rhonchi. HEART: Regular rate and rhythm without murmurs ABDOMEN: Soft, nontender, nondistended abdomen. No guarding, no rebound. No masses appreciated. Female : deferred Musculoskeletal: Normal range of motion, no pitting or edema. No cyanosis. NEUROLOGICAL: Cranial nerves grossly intact. Normal speech, normal gait. Normal sensory, motor exams PSYCH: Normal mood, normal affect. SKIN: Warm, Dry, normal turgor, no rashes or lesions noted. PSYCHIATRIC: Denies anxiety or stress. Denies depression, suicidal ideation, or homicidal ideation. ALL OTHER SYSTEMS REVIEWED AND NEGATIVE. Dictation was performed using [employer] voice recognition software Physical Exam - Vital signs Vitals: Temp Pulse Resp BP Pulse Ox 98.1 F 75 18 131/95 H 97 08/20/18 11:40 08/20/18 11:40 08/20/18 11:40 08/20/18 11:40 08/20/18 11:40 - HEENT Visual acuity- Right eye: 20/25 Visual acuity- Left eye: 20/30 Visual acuity- Both eyes: 20/30 Corrective lenses worn: No Course - Re-evaluation Re-evalutation: 08/20/18 23:[address] Gandhi presents patient's eye exam. He came over and examined the eyes. He states this was a viral infection and the patient needed to be treated with ketorolac eyedrops and follow-up with ophthalmology tomorrow. There was no Flouresciene uptake on exam. Patient was treated with ketorolac eyedrops in the emergency room instructed to use them 1-2 drops each eye every 4 hours and to follow-up with the. - Vital Signs Vital signs: Temp Pulse Resp BP Pulse Ox 97.9 F 77 18 118/77 98 08/20/18 13:00 08/20/18 13:00 08/20/18 13:00 08/20/18 13:00 08/20/18 13:00 Discharge - Discharge Clinical Impression: Acute viral conjunctivitis of both eyes Condition: Stable Disposition: HOME, SELF-CARE Additional Instructions: CONJUNCTIVITIS: You have an infection in your eye, commonly known as "pink eye." Conjunctivitis causes redness, mild discomfort, itching, and mattering on the eyelids. It is very contagious, so you must be careful to wash your hands after touching your face so you don't pass the infection on to others. Conjunctivitis is caused by both viruses and bacteria. It usually responds quickly to treatment with antibiotic drops. These should be placed in the eye as prescribed (usually every three to four hours while you're awake). If you wear contact lenses, don't put them in your eyes until the infection is cleared and you are no longer using the drops (unless your doctor advises you otherwise). Should you develop increasing eye pain, severe swelling, decreased vision, or fail to improve as expected, please return for re-examination. EYEDROP USE: Eyedrops are most easily applied by pulling down on the cheek just below the lower eyelid. The lower lid will pop out to form a pouch into which you can drop the medicine. A small brief sting is not unusual, especially if the eye is reddened and irritated already. Use the drops exactly as recommended. You should see the doctor at once if there is a decrease in vision, swelling of the eye, or an increase in discomfort. FOLLOW-UP CARE: If you have been referred to a physician for follow-up care, call the physician s office for an appointment as you were instructed or within the next two days. If you experience worsening or a significant change in your symptoms, notify the physician immediately or return to the Emergency Department at any time for re-evaluation. Prescriptions: Ketorolac Tromethamine [Acular] 1 drop BTH_EYE Q4HP PRN #5 ml PRN Reason: Forms: Elevated Blood Pressure Referrals: INDIRA FULLER MD [Primary Care Provider] - REGGIE QUEZADA MD [ACTIVE STAFF] - 08/20/18
[2018-08-20 13:06] VITALS: BP 118/77
== END 2018-08-20 13:06 | disposition home or self-care (01) ==
LOC: ER 11:29
DX: H10.33 Unspecified acute conjunctivitis, bilateral (principal); B97.89 Other viral agents as the cause of diseases classified elsewhere; F17.210 Nicotine dependence, cigarettes, uncomplicated; Z71.6 Tobacco abuse counseling; Z88.8 Allergy status to other drugs, medicaments and biological substances
CPT/HCPCS: 99406; 99283; J3490 ×2

== ENCOUNTER → 2019-01-23 | Outpatient (CLI) | payer MEDICAID ==
--- NOTE | 2019-01-23 15:39 | RADIOLOGY REPORT (SQ) ---
EXAM DESCRIPTION: KNEE LEFT 3 VIEWS COMPLETED DATE/TIME: 01/23/2019 2:57 pm REASON FOR STUDY: INJURY OF LEFT KNEE, INITIAL ENCOUNTER S89.92XA UNSPECIFIED INJURY OF LEFT LOWER LEG, INITIAL ENCOU COMPARISON: None. NUMBER OF VIEWS: Three views. TECHNIQUE: AP, lateral, and sunrise patella radiographic images acquired of the left knee. LIMITATIONS: None. FINDINGS: MINERALIZATION: Normal. BONES: No acute fracture or dislocation. No worrisome bone lesions. JOINT: No effusion. SOFT TISSUES: No soft tissue swelling. No radio-opaque foreign body. OTHER: No other significant finding. IMPRESSION: NEGATIVE STUDY OF THE LEFT KNEE. NO RADIOGRAPHIC EVIDENCE OF ACUTE INJURY. TECHNICAL DOCUMENTATION: JOB ID: [id number] [employer]- All Rights Reserved Reading location - IP/workstation name: [email or web address]
== END ==
LOC: OD 14:39
PROVIDERS: ATTEND Nurse Practitioner Family
DX: S89.92XA Unspecified injury of left lower leg, initial encounter (principal); X58.XXXA Exposure to other specified factors, initial encounter

== ENCOUNTER 2019-04-27 11:05 | Emergency (ER) | payer MEDICAID ==
[2019-04-27 11:09] VITALS: BP 118/89
[2019-04-27] MEDS ORDERED: PROMETHAZINE HCL INJ 25 MG/1 ML VIAL IM ONE (11:23)
[2019-04-27] MEDS ORDERED: NORMAL SALINE 1000 ML 1,000 ML IV ONE (11:23)
[2019-04-27] MEDS ORDERED: LIDOCAINE 2% VISCOUS SOLN 20 ML UDCUP PO ONE (11:24)
[2019-04-27] MEDS ORDERED: METOCLOPRAMIDE HCL ORAL SOLN 10 MG/10 ML UDCUP PO ONE (11:24)
[2019-04-27] MEDS ORDERED: MAG HYDROX/AL HYDROX/SIMETH SUSP 30 ML UDCUP PO ONE (11:24)
--- NOTE | 2019-04-27 11:25 | ER Document Report ---
ED Medical Screen (RME) - General Chief Complaint: Abdominal Pain Stated Complaint: ABDOMINAL PAIN Time Seen by Provider: 04/27/19 11:20 Primary Care Provider: IGNACIA GAUTHIER NP [Primary Care Provider] - Follow up as needed TRAVEL OUTSIDE OF THE [place] IN LAST 30 DAYS: No - HPI Notes: 04/27/19 11:24 Patient is a 33-year-old female with a history of cholecystectomy and GERD who i s approximately 13 weeks who presents complaining of epigastric abdominal pain that is intermittent and described as sharp that began 6-1/2 hours ago. Patient states the pain does not radiate. She is still urinating normally. She has not noticed any vaginal bleeding, odor, or discharge. No lower abdominal pain or cramping. Denies PALMER, fever, neck pain, URI, CP, SOB, dysuria, back pain, or rash. I have treated and performed a rapid initial assessment of this patient. A comprehensive ED assessment and evaluation of the patient, analysis of test results and completion of medical decision making process will be conducted by additional ED providers. PHYSICAL EXAMINATION: GENERAL: Well-appearing, well-nourished and in no acute distress. A&Ox4. Answers questions appropriately. LUNGS: Breath sounds clear to auscultation bilaterally and equal. No wheezes rales or rhonchi. HEART: Regular rate and rhythm without murmurs, rubs, gallops. ABDOMEN: Soft, nondistended abdomen. No guarding, no rebound. Normal bowel sounds present. No CVA tenderness bilaterally. + mild epigastric tenderness (cannot elicit thorough abd exam w/o bed, however). - Related Data Allergies/Adverse Reactions: ondansetron HCl [From Zofran] Allergy (Verified 04/27/19 11:05) Past Medical History - Social History Family history: Reviewed & Not Pertinent - Past Medical History Cardiac Medical History: Pulmonary Medical History: Neurological Medical History: Renal/ Medical History: Reports: Hx Kidney Stones - Required lithotripsy. Denies: Hx Peritoneal Dialysis Musculoskeltal Medical History: Past Surgical History: Reports: Hx Abdominal Surgery - gastroschesis, Hx Appendectomy, Hx Cholecystectomy - Immunizations Immunizations up to date: Yes Hx Diphtheria, Pertussis, Tetanus Vaccination: Yes Physical Exam - Vital signs Vitals: Temp Pulse Resp BP Pulse Ox 98.1 F 110 H 20 118/89 H 98 04/27/19 11:08 04/27/19 11:08 04/27/19 11:08 04/27/19 11:08 04/27/19 11:08 Course - Vital Signs Vital signs: Temp Pulse Resp BP Pulse Ox 98.1 F 110 H 20 118/89 H 98 04/27/19 11:08 04/27/19 11:08 04/27/19 11:08 04/27/19 11:08 04/27/19 11:08 Doctor's Discharge - Discharge Referrals: IGNACIA GAUTHIER ANIMAL DAYCARE PROVIDER [Primary Care Provider] - Follow up as needed
[2019-04-27 11:57] LABS: ABSOLUTE BASOPHILS # (AUTO) 0.1 10^3/uL (0.0-0.2); ABSOLUTE EOSINOPHILS # (AUTO) 0.2 10^3/uL (0.0-0.6); ABSOLUTE MONOCYTES (AUTO) 0.7 10^3/uL (0.1-1.4); ABSOLUTE NEUT (AUTO) 10.7 10^3/uL (1.7-8.2); BASOPHILS % (AUTO) 0.4 % (0-2); EOSINOPHILS % (AUTO) 1.1 % (0-6); HEMATOCRIT 46.4 % (36.0-47.0); LYMPHOCYTES % (AUTO) 14.7 % (13-45); MEAN CORPUSCULAR HEMOGLOBIN 30.8 pg (27.0-33.4); MEAN CORPUSCULAR HGB CONC 34.6 g/dL (32.0-36.0); MEAN CORPUSCULAR VOLUME 89 fl (80-97); MONOCYTES % (AUTO) 5.3 % (3-13); PLATELET COUNT 294 10^3/uL (150-450); RED CELL DISTRIBUTION WIDTH 14.5 % (11.5-14.0); SEGMENTED NEUTROPHILS % (AUTO) 78.5 % (42-78); TOTAL CELLS COUNTED % (AUTO) 100 %; WHITE BLOOD COUNT 13.6 10^3/uL (4.0-10.5)
[2019-04-27 12:15] LABS: ALBUMIN 4.7 g/dL (3.5-5.0); ALKALINE PHOSPHATASE 80 U/L (38-126); ANION GAP 9 (5-19); ASPARTATE AMINO TRANSFERASE 32 U/L (14-36); BILIRUBIN,DIRECT 0.3 mg/dL (0.0-0.4); BILIRUBIN,TOTAL 0.7 mg/dL (0.2-1.3); BLOOD UREA NITROGEN 7 mg/dL (7-20); CALCIUM 11.5 mg/dL (8.4-10.2); CARBON DIOXIDE 25 mmol/L (22-30); CHLORIDE 103 mmol/L (98-107); GLUCOSE 113 mg/dL (75-110); POTASSIUM 4.6 mmol/L (3.6-5.0); TOTAL PROTEIN 7.9 g/dL (6.3-8.2)
[2019-04-27 13:43] LABS: AMORPHOUS SEDIMENT,URINE TRACE /HPF; APPEARANCE,URINE CLOUDY; BILIRUBIN,URINE NEGATIVE (NEGATIVE); COLOR,URINE YELLOW; GLUCOSE, URINE NEGATIVE (NEGATIVE); KETONES,URINE TRACE mg/dL (NEGATIVE); LEUKOCYTE ESTERASE,URINE NEGATIVE (NEGATIVE); NITRITE,URINE NEGATIVE (NEGATIVE); PROTEIN,URINE NEGATIVE (NEGATIVE); URINE SPECIFIC GRAVITY 1.009; UROBILINOGEN,URINE NEGATIVE mg/dL (<2.0)
[2019-04-27] MEDS ORDERED: RINGERS SOLUTION,LACTATED 1,000 ML IV ONE (14:43)
[2019-04-27] MEDS ORDERED: PROMETHAZINE HCL 25 MG TABLET PO ONE (14:43)
[2019-04-27] MEDS ORDERED: FAMOTIDINE INJ/PF 20 MG/2 ML SDV IV ONE (14:43)
--- NOTE | 2019-04-27 15:19 | ER Document Report ---
ED General - General Chief Complaint: Abdominal Pain Stated Complaint: ABDOMINAL PAIN Time Seen by Provider: 04/27/19 11:20 Primary Care Provider: EVELYN CHOU MD [ACTIVE STAFF] - Follow up in 3-5 days IGNACIA GAUTHIER NP [NO LOCAL MD] - Follow up as needed Mode of Arrival: Ambulatory Information source: Patient, [facility] Records Notes: 33-year-old female G4, P3 at approximately 13 weeks gestation presents with complaint of epigastric abdominal pain, nausea, vomiting that began this morning. Patient reports the pain as sharp, without radiation and intermittent. Patient has had persistent vomiting since this morning. She denies vomiting throughout her up into this point. She has had an ultrasound which confirmed an IUP. She denies any lower abdominal pain, dysuria, hematuria, vaginal discharge, vaginal bleeding. Patient reports a history of bowel obstruction but states that she has had frequent bowel movements over the last 3 days. She denies any black or bloody stools. She is passing flatus. Patient did receive Zofran and IV fluids prior to my exam and does report improvement of her nausea. TRAVEL OUTSIDE OF THE [place] IN LAST 30 DAYS: No - HPI Onset: This morning Onset/Duration: Sudden Quality of pain: Sharp Severity: Moderate Pain Level: 2 Associated symptoms: Nausea, Vomiting. denies: Chest pain, Diarrhea, Fever, Shortness of breath Exacerbated by: Food Relieved by: Denies Similar symptoms previously: No Recently seen / treated by doctor: Yes - Related Data Allergies/Adverse Reactions: ondansetron HCl [From Zofran] Allergy (Verified 04/27/19 11:05) Past Medical History - General Information source: Patient - Social History Smoking Status: Current Every Day Smoker Cigarette use (# per day): Yes - 5 Smoking Education Provided: Yes - Smoking cessation counseling was provided for 4 minutes at the bedside Frequency of alcohol use: None Drug Abuse: None Lives with: Family Family History: Reviewed & Not Pertinent Patient has suicidal ideation: No Patient has homicidal ideation: No - Past Medical History Cardiac Medical History: Pulmonary Medical History: Neurological Medical History: Renal/ Medical History: Reports: Hx Kidney Stones - Required lithotripsy. Denies: Hx Peritoneal Dialysis GI Medical History: Reports: Hx Gastroesophageal Reflux Disease Musculoskeletal Medical History: Past Surgical History: Reports: Hx Abdominal Surgery - gastroschesis, Hx Appendectomy, Hx Cholecystectomy - Immunizations Immunizations up to date: Yes Hx Diphtheria, Pertussis, Tetanus Vaccination: Yes Review of Systems - Review of Systems Notes: REVIEW OF SYSTEMS: CONSTITUTIONAL : Denies fever, chills, or sweats. Denies recent illness. Denies weight loss, recent hospitalizations. EENT: Denies visual changes, eye pain. Denies sore throat, oral lesions, d ifficulty swallowing. CARDIOVASCULAR: Denies chest pain. Denies palpitations. Denies lower extremity edema. RESPIRATORY: Denies cough. Denies shortness of breath, wheezing. GASTROINTESTINAL: Denies abdominal distention. Denies diarrhea. Denies blood in vomitus, stools, or per rectum. Denies black, tarry stools. Denies constipation. GENITOURINARY: Denies difficulty urinating, painful urination, frequency, blood in urine, or vaginal discharge. MUSCULOSKELETAL: Denies back or neck pain or stiffness. Denies joint pain or swelling. SKIN: Denies rash, lesions or sores. HEMATOLOGIC : Denies easy bruising or bleeding. LYMPHATIC: Denies swollen glands. NEUROLOGICAL: Denies confusion or altered mental status. Denies loss of consciousness. Denies dizziness or lightheadedness. Denies headache. Denies weakness or paralysis. Denies problems difficulty with ambulation, slurred speech. Denies sensory loss, numbness, or tingling. Denies seizures. PSYCHIATRIC: Denies anxiety or stress. Denies depression, suicidal ideation, or homicidal ideation. Denies visual or auditory hallucinations. PHYSICAL EXAMINATION: GENERAL: Well-appearing, well-nourished and in no acute distress. HEAD: Atraumatic, normocephalic. EYES: Pupils equal round and reactive to light, extraocular movements intact, conjunctiva are normal. ENT: Nares patent, oropharynx clear without exudates. Moist mucous membranes. NECK: Normal range of motion, supple without lymphadenopathy LUNGS: Breath sounds clear to auscultation bilaterally and equal. No wheezes rales or rhonchi. HEART: Regular rate and rhythm without murmurs ABDOMEN: Soft, epigastric tenderness with palpation, nondistended abdomen. No guarding, no rebound. No masses appreciated. Female : deferred Musculoskeletal: Normal range of motion, no pitting or edema. No cyanosis. NEUROLOGICAL: Cranial nerves grossly intact. Normal speech, normal gait. Normal sensory, motor exams PSYCH: Normal mood, normal affect. SKIN: Warm, Dry, normal turgor, no rashes or lesions noted. Physical Exam - Vital signs Vitals: Temp Pulse Resp BP Pulse Ox 98.1 F 110 H 20 118/89 H 98 04/27/19 11:08 04/27/19 11:08 04/27/19 11:08 04/27/19 11:08 04/27/19 11:08 Course - Re-evaluation Re-evalutation: Temp Pulse Resp BP Pulse Ox 98.1 F 110 H 20 118/89 H 98 04/27/19 11:08 04/27/19 11:08 04/27/19 11:08 04/27/19 11:08 04/27/19 11:08 KUB X-Ray 04/27/19 14:43 IMPRESSION: NO RADIOGRAPHIC EVIDENCE FOR ACUTE ABDOMINAL DISEASE. Laboratory 04/27/19 04/27/19 04/27/19 11:45 11:45 13:11 WBC 13.6 H RBC 5.20 Hgb 16.0 H Hct 46.4 MCV 89 MCH 30.8 MCHC 34.6 RDW 14.5 H Plt Count 294 Seg Neutrophils % 78.5 H Lymphocytes % 14.7 Monocytes % 5.3 Eosinophils % 1.1 Basophils % 0.4 Absolute Neutrophils 10.7 H Absolute Lymphocytes 2.0 Absolute Monocytes 0.7 Absolute Eosinophils 0.2 Absolute Basophils 0.1 Sodium 137.1 Potassium 4.6 Chloride 103 Carbon Dioxide 25 Anion Gap 9 BUN 7 Creatinine 0.53 Est GFR ( Amer) > 60 Est GFR (Non-Af Amer) > 60 Glucose 113 H Calcium 11.5 H Total Bilirubin 0.7 Direct Bilirubin 0.3 Neonat Total Bilirubin Not Reportable Neonat Direct Bilirubin Not Reportable Neonat Indirect Bili Not Reportable AST 32 ALT 19 Alkaline Phosphatase 80 Total Protein 7.9 Albumin 4.7 Lipase 45.3 Urine Color YELLOW Urine Appearance CLOUDY Urine pH 7.0 Ur Specific [place] 1.009 Urine Protein NEGATIVE Urine Glucose (UA) NEGATIVE Urine Ketones TRACE H Urine Blood NEGATIVE Urine Nitrite NEGATIVE Urine Bilirubin NEGATIVE Urine Urobilinogen NEGATIVE Ur Leukocyte Esterase NEGATIVE Urine WBC (Auto) 3 Urine RBC (Auto) 0 Squamous Epi Cells Auto 1 Amorphous Sediment Auto TRACE Urine Mucus (Auto) RARE Urine Ascorbic Acid NEGATIVE KUB X-Ray 04/27/19 14:43 IMPRESSION: NO RADIOGRAPHIC EVIDENCE FOR ACUTE ABDOMINAL DISEASE. 04/27/19 15:18 33-year-old female G4, P3 presents with epigastric abdominal pain nausea and vomiting. Vital signs reviewed and patient is afebrile, mildly tachycardic. She does not appear toxic or dehydrated. She is in no acute distress. heart tones were obtained and 158. Patient received IV fluids, promethazine, Pepcid during her ED course. On reevaluation she is resting comfortably and reports improvement of her pain and nausea. She is able to tolerate fluids. Patient was discharged home with a prescription for Zofran and Pepcid. 04/27/19 21:55 Patient was evaluated and treated as appropriate for the patient's presenting symptoms and complaint, with consideration of any critical or life threatening conditions that may be associated with their obtained history and exam as noted above. All results were discussed with patient. Patient provided the opportunity to ask questions, and express concerns. Patient was educated on treatments based on their presumed diagnosis as noted above. At this time we will discharge the patient with return precautions and follow-up recommendations. Verbal discharge instructions given a the bedside. Medication warnings reviewed. Patient is in agreement with this plan and has verbalized understanding of return precautions. After careful consideration I feel that that patient can be safely discharged from the emergency department, they were advised to followup with a primary care physician in 2-3 days. Dictation on this chart was performed using voice recognition software and may result in unintended grammatical, spelling, syntax or errors. - Vital Signs Vital signs: Temp Pulse Resp BP Pulse Ox 98.1 F 110 H 20 118/89 H 98 04/27/19 11:08 04/27/19 11:08 04/27/19 11:08 04/27/19 11:08 04/27/19 11:08 - Laboratory Result Diagrams: 04/27/19 11:45 04/27/19 11:45 Laboratory results interpreted by me: 04/27/19 04/27/19 04/27/19 11:45 11:45 13:11 WBC 13.6 H Hgb 16.0 H RDW 14.5 H Seg Neutrophils % 78.5 H Absolute Neutrophils 10.7 H Glucose 113 H Calcium 11.5 H Urine Ketones TRACE H - Diagnostic Test Radiology reviewed: Image reviewed, Reports reviewed Discharge - Discharge Clinical Impression: Upper abdominal pain Qualifiers: Weeks of gestation: 13 weeks Qualified Code(s): Z3A.13 - 13 weeks gestation of Nausea & vomiting Qualifiers: Vomiting type: unspecified Vomiting Intractability: non-intractable Qualified Code(s): R11.2 - Nausea with vomiting, unspecified Condition: Good Disposition: HOME, SELF-CARE Instructions: Abdominal Pain ([facility]), ([facility]), Vomiting ([facility]) Additional Instructions: Follow up with your [id number] hours for further care or return to the ED IMMEDIATELY if symptoms worsen or you have any concerns. If you cannot afford to follow up with your primary care physician a list of low cost clinics have been provided at the end of your discharge papers as well. Most prescribed medications have multiple side effects. The safest thing to do is when filling your prescription speak to your pharmacist regarding possible interactions with your normal home medications and over the counter medications such as Ibuprofen, Tylenol, Benadryl. If you experience any symptoms that cause you discomfort or concern you should discontinue the medication immediately and return to the emergency room or call your primary care physician. Prescriptions: Famotidine [Pepcid 40 mg Tablet] 40 mg PO DAILY 10 Days #10 tablet Promethazine HCl [Phenergan 25 mg Tablet] 25 mg PO Q8H PRN #12 tablet PRN Reason: Forms: Elevated Blood Pressure Referrals: IGNACIA GAUTHIER NP [NO LOCAL MD] - Follow up as needed EVELYN CHOU MD [ACTIVE STAFF] - Follow up in 3-5 days
--- NOTE | 2019-04-27 16:31 | RADIOLOGY REPORT (SQ) ---
EXAM DESCRIPTION: KUB/ABDOMEN (SINGLE VIEW) COMPLETED DATE/TIME: 04/27/2019 4:22 pm REASON FOR STUDY: h/o obstruction COMPARISON: 04/06/2016. NUMBER OF VIEWS: One view. TECHNIQUE: Supine radiographic image of the abdomen acquired. LIMITATIONS: None. FINDINGS: BOWEL GAS PATTERN: Normal bowel gas pattern. No dilated loops. CALCIFICATIONS: No suspicious calcifications. SOFT TISSUES: No gross mass or suggestion of organomegaly. HARDWARE: Surgical clips. BONES: No acute fracture. No worrisome bone lesions. OTHER: No other significant finding. IMPRESSION: NO RADIOGRAPHIC EVIDENCE FOR ACUTE ABDOMINAL DISEASE. TECHNICAL DOCUMENTATION: JOB ID: [id number] [email or web address]- All Rights Reserved Reading location - IP/workstation name: [email or web address]
== END 2019-04-27 17:56 | disposition home or self-care (01) ==
LOC: ER 11:05
DX: O26.891 Other specified pregnancy related conditions, first trimester (principal); R10.10 Upper abdominal pain, unspecified; R10.13 Epigastric pain; O21.9 Vomiting of pregnancy, unspecified; O99.331 Smoking (tobacco) complicating pregnancy, first trimester; Z3A.13 13 weeks gestation of pregnancy
CPT/HCPCS: 99406; 99284; 96372; 96361; 96374; 36415; 83690; 85025; 80053; 81001; 74018; J3490 ×4; J2550; J7030; J7120; S0028

== ENCOUNTER 2019-10-10 16:51 | Outpatient (CLI) | payer MEDICAID ==
[2019-10-10 17:57] LABS: APPEARANCE,URINE CLEAR; BILIRUBIN,URINE NEGATIVE (NEGATIVE); COLOR,URINE YELLOW; GLUCOSE, URINE NEGATIVE (NEGATIVE); KETONES,URINE NEGATIVE (NEGATIVE); LEUKOCYTE ESTERASE,URINE NEGATIVE (NEGATIVE); NITRITE,URINE NEGATIVE (NEGATIVE); PROTEIN,URINE NEGATIVE (NEGATIVE); URINE SPECIFIC GRAVITY 1.009; UROBILINOGEN,URINE NEGATIVE mg/dL (<2.0)
[2019-10-10 18:36] LABS: HEMATOCRIT 34.8 % (36.0-47.0); HEMOGLOBIN 12.1 g/dL (12.0-15.5); MEAN CORPUSCULAR HGB CONC 34.9 g/dL (32.0-36.0); MEAN CORPUSCULAR VOLUME 92 fl (80-97); PLATELET COUNT 336 10^3/uL (150-450); RED BLOOD COUNT 3.78 10^6/uL (3.72-5.28); RED CELL DISTRIBUTION WIDTH 13.1 % (11.5-14.0); WHITE BLOOD COUNT 12.1 10^3/uL (4.0-10.5)
[2019-10-10 18:44] LABS: URINE AMPHETAMINES SCREEN NEGATIVE; URINE BARBITURATES SCREEN NEGATIVE; URINE BENZODIAZEPINES SCREEN NEGATIVE; URINE METHADONE SCREEN NEGATIVE; URINE PHENCYCLIDINE SCREEN NEGATIVE
[2019-10-10 18:46] LABS: UR PRO/CREAT RATIO RESULT 0.4 mg/mg (0.0-0.2); URINE CREATININE 36.4 mg/dL (16-327); URINE PROTEIN 13.1 mg/dL (<12)
[2019-10-10 18:57] LABS: URINE COCAINE SCREEN UNCONFIRMED POSITIVE
[2019-10-10 18:58] LABS: URINE MARIJUANA (THC) SCREEN UNCONFIRMED POSITIVE
[2019-10-10 18:59] LABS: ALBUMIN 3.1 g/dL (3.5-5.0); ALKALINE PHOSPHATASE 310 U/L (38-126); ANION GAP 7 (5-19); ASPARTATE AMINO TRANSFERASE 46 U/L (14-36); BILIRUBIN,DIRECT 0.4 mg/dL (0.0-0.4); BILIRUBIN,TOTAL 0.4 mg/dL (0.2-1.3); BLOOD UREA NITROGEN 10 mg/dL (7-20); CALCIUM 8.9 mg/dL (8.4-10.2); CARBON DIOXIDE 23 mmol/L (22-30); CHLORIDE 105 mmol/L (98-107); GLUCOSE 75 mg/dL (75-110); POTASSIUM 4.4 mmol/L (3.6-5.0); TOTAL PROTEIN 6.2 g/dL (6.3-8.2); URIC ACID 4.3 mg/dL (2.5-6.2)
[2019-10-10 19:01] LABS: ABSOLUTE LYMPHOCYTES# (MANUAL) 2.2 10^3/uL (0.5-4.7); ABSOLUTE MONOCYTES # (MANUAL) 0.7 10^3/uL (0.1-1.4); BASOPHILS % (MANUAL) 0 % (0-2); EOSINOPHILS % (MANUAL) 2 % (0-6); LYMPHOCYTES % (MANUAL) 18 % (13-45); MONOCYTES % (MANUAL) 6 % (3-13); PLATELET COMMENT ADEQUATE; RBC MORPHOLOGY COMMENT NORMO-CYTIC/CHROMIC; SEGMENTED NEUTROPHILS % (MAN) 74 % (42-78); TOTAL CELLS COUNTED 100
--- NOTE | 2019-10-10 19:59 | Non Stress Test Report ---
Non Stress Test Datetime Report Generated by CPN: 10/10/2019 19:59 DEMOGRAPHIC EGA NST: 36.5 INDICATION Indication for Study (NST) Other: Elevated BP checks, labor check MONITORING Monitor Explained: Monitor Explained; Test Explained; Patient Verbalized Understanding Time on Monitor: 10/10/2019 19:08 Time off Monitor: 10/10/2019 19:34 NST Duration: 26 NST INTERVENTIONS NST Interventions: PO Hydration Physician Notified NST: Dr. Francis BABY A: [id number] BABY A Movement : Present Contraction Frequency : None FHR Baseline : 145 Accelerations : 15X15 Decelerations : None Variability : Moderate 6-25bpm NST Review: Meets Criteria for Reactive NST NST Review and Verified By : CHRISTIANO Solis NST Results: Reactive NST COMMENTS NST Comments: Dr.Frnacis reviewed labs, blood pressures. Orders received for discharge. NST REPORT Report Trigger: Send Report
[2019-10-12 13:19] LABS: 24 HOUR URINE PROTEIN RESULT 389 mg/day (42-225); URINE PROTEIN 14.4 mg/dL (<12)
== END 2019-10-10 19:45 | disposition home or self-care (01) ==
LOC: LC 16:51
PROVIDERS: ATTEND Obstetrics & Gynecology
PROC: 4A1HXCZ Monitoring of Products of Conception, Cardiac Rate, External Approach (ICD-10-PCS; principal; 2019-10-10)
DX: O13.3 Gestational [pregnancy-induced] hypertension without significant proteinuria, third trimester (principal); O99.333 Smoking (tobacco) complicating pregnancy, third trimester; F17.210 Nicotine dependence, cigarettes, uncomplicated; Z3A.36 36 weeks gestation of pregnancy
CPT/HCPCS: 59025; 36415; 83615; 84156; 84550; 82570; 85025; 80053; 81001; 80307; 80353; G0480 ×3; 80349

== ENCOUNTER 2019-10-14 13:06 | Inpatient (IN) | payer MEDICAID ==
[2019-10-14 13:44] LABS: APPEARANCE,URINE CLEAR; BILIRUBIN,URINE NEGATIVE (NEGATIVE); COLOR,URINE YELLOW; GLUCOSE, URINE NEGATIVE (NEGATIVE); KETONES,URINE NEGATIVE (NEGATIVE); LEUKOCYTE ESTERASE,URINE NEGATIVE (NEGATIVE); NITRITE,URINE NEGATIVE (NEGATIVE); PROTEIN,URINE NEGATIVE (NEGATIVE); URINE SPECIFIC GRAVITY 1.009; UROBILINOGEN,URINE NEGATIVE mg/dL (<2.0)
[2019-10-14] MEDS ORDERED: ACETAMINOPHEN 325 MG TABLET PO ONE (14:00)
[2019-10-14] MEDS ORDERED: METRONIDAZOLE 500 MG TABLET PO ONE (14:00)
[2019-10-14] MEDS: RINGERS SOLUTION,LACTATED 1,000 ML IV PRN ×2 (14:00→22:58)
[2019-10-14 14:08] LABS: URINE AMPHETAMINES SCREEN NEGATIVE; URINE BARBITURATES SCREEN NEGATIVE; URINE BENZODIAZEPINES SCREEN NEGATIVE; URINE MARIJUANA (THC) SCREEN NEGATIVE; URINE METHADONE SCREEN NEGATIVE; URINE PHENCYCLIDINE SCREEN NEGATIVE
[2019-10-14] MEDS ORDERED: METRONIDAZOLE 500 MG TABLET ONE (14:23)
[2019-10-14] MEDS ORDERED: ACETAMINOPHEN 325 MG TABLET ONE (14:23)
[2019-10-14 14:33] LABS: URINE COCAINE SCREEN UNCONFIRMED POSITIVE
[2019-10-14 14:49] LABS: UR PRO/CREAT RATIO RESULT 0.3 mg/mg (0.0-0.2); URINE CREATININE 42.4 mg/dL (16-327); URINE PROTEIN 14.3 mg/dL (<12)
[2019-10-14 14:55] LABS: HEMATOCRIT 35.7 % (36.0-47.0); HEMOGLOBIN 12.3 g/dL (12.0-15.5); MEAN CORPUSCULAR HEMOGLOBIN 31.1 pg (27.0-33.4); MEAN CORPUSCULAR HGB CONC 34.5 g/dL (32.0-36.0); MEAN CORPUSCULAR VOLUME 90 fl (80-97); PLATELET COUNT 388 10^3/uL (150-450); RED BLOOD COUNT 3.96 10^6/uL (3.72-5.28)
[2019-10-14] MEDS ORDERED: HYDRALAZINE HCL INJ/PF 20 MG/1 ML SDV ONE ×2 (15:17→22:49)
[2019-10-14] MEDS ORDERED: HYDRALAZINE HCL INJ/PF 20 MG/1 ML SDV IV ONE ×2 (15:18→22:45)
[2019-10-14] MEDS ORDERED: OXYTOCIN/NORMAL SALINE 20 UNIT/1,000 ML RTUINJ IV PRN ×2 (16:30→22:06)
[2019-10-14] MEDS ORDERED: OXYTOCIN/NORMAL SALINE 20 UNIT/1,000 ML RTUINJ ONE (16:34)
[2019-10-14] MEDS ORDERED: MISOPROSTOL 0.2 MG TABLET ONE (16:34)
[2019-10-14] MEDS ORDERED: OXYTOCIN 10 UNIT/ML VIAL ONE (16:34)
[2019-10-14] MEDS ORDERED: LIDOCAINE 1% INJ-PF (10 MG/ML) 30 ML SDV ONE (16:34)
[2019-10-14] MEDS ORDERED: FENTANYL CITRATE INJ/PF 100 MCG/2 ML AMPUL ONE (20:15)
[2019-10-14] MEDS ORDERED: EPHEDRINE SULFATE INJ 50 MG/1 ML AMPULE ONE (20:15)
[2019-10-14] MEDS ORDERED: FENTANYL/BUPIVACAINE/NS/PF 300 MCG/150 ML RTUINJ EPI ONE (20:16)
[2019-10-14] MEDS ORDERED: BUPIVACAINE HCL 0.25 % INJ/PF (2.5 MG/1 ML) 30 ML VIAL ONE (20:16)
--- NOTE | 2019-10-14 21:40 | Admission Physical ---
Datetime Report Generated by CPN: 10/14/2019 21:39 CURRENT ADMISSION Chief Complaint: Other Chief Complaint Other: patient with complaint of severe range BP at home, with headache and seeing stars yesterday. Scheduled for induction tomorrow. Severe range pressures on admission. Indication for Induction: Gestational HTN Admit Impression : Term, Intrauterine ; Induction of Labor Admit Plan: Admit to Unit; Initiate Labor Induction Protocol ALLERGIES Medication Allergies: Yes Medication Allergies: ondansetron HCl (04/27/2019) Latex: No Latex Allergies OBSTETRICAL HISTORY EDC: 11/02/2019 00:00 : 6 Para: 3 Term: 3 : 0 SAB: 2 Livin Cesareans: 0 Gestational Diabetes: No Rh Sensitization: No Incompetent Cervix: No CANDIS: No Infertility: No Uterine Anomaly: No IUGR: No Hx Previous C/S: No Macrosomia: No Hx Loss/Stillborn: No PIH: No Hx : No Placenta Previa/Abruption: No Depression/PP Depression: No PTL/PROM: No Post Hemorrhage: No Current Procedures: Ultrasound Obstetrical History Comments: G1- 06/30/2005, vaginal, full term G2-08/16/2007, Vaginal, full term G3-12/31/2010, Vaginal, full term G4 and G5 SAB in first trimester, unsure of dates G6-Current SEE RECORDS Alcohol: No Marijuana : Yes Marijuana Frequency: Occasional Years Used: 17 Last Used: 09/16/2019 00:00 Previous Treatment: None Cocaine: Yes Cocaine Comments: pt denies cocaine use but states that she thinks she has used marijuana that was laced Other Illicit Drugs: No Cigarettes: Current Everyday Smoker. 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, Kidney stones 2013, appendetomy 2004, gall blader removed 2015 INFECTIOUS HISTORY Gonorrhea: No Genital Herpes: No Chlamydia: Yes Tuberculosis: No Syphilis: No Hepatitis: No HIV/AIDS Exposure: No Rash or Viral Illness: No Infectious History Comments: Chlamydia-2004 Trichomoniasis - current, treated with Flagyl today, 10/14/19 PHYSICAL EXAM General: Normal HEENT: Normal Neurologic: Normal Thyroid: Normal Heart: Normal Lungs: Normal Breast: Normal Back: Normal Abdomen: Normal Genitourinary Exam: Normal Extremities: Normal DTRs: Normal Pelvic Type: Adequate Vital Signs: Reviewed VAGINAL EXAM Dilatation: 9 Effacement: 100 Station: 0 MEMBRANES Pooling: Negative Membranes: Intact FETUS A EGA: 37.2 Monitoring: External US FHR- Baseline: 150 Variability: Moderate 6-25bpm Accelerations: 15X15 Decelerations: None FHR Category: Category I Estimated Weight (gm): 2800 Presentation: Vertex PLANS FOR LABOR AND DELIVERY Labor and Delivery: None Pain Management: Epidural Feeding Preference: Formula Benefit of Breast Feed Discussed: Yes Circumcision: N/A INFORMED CONSENT Signature: with User ID: [email or web address]
[2019-10-14] MEDS ORDERED: ZOLPIDEM TARTRATE 5 MG TABLET PO PRN (22:06)
[2019-10-14] MEDS ORDERED: MAGNESIUM HYDROXIDE SUSP 30 ML UDCUP PO PRN (22:06)
[2019-10-14] MEDS ORDERED: PROMETHAZINE HCL 25 MG TABLET PO PRN (22:06)
[2019-10-14] MEDS ORDERED: MEASLES,MUMPS&RUBELLA VACC/PF 0.5 ML VIAL SUBCUT PRN (22:06)
[2019-10-14] MEDS ORDERED: GLYCERIN/WITCH HAZEL LEAF 1 EACH MED..WIPE TP PRN (22:06)
[2019-10-14] MEDS ORDERED: NA PHOS,M-B/NA PHOS,DI-BA (ADULT) 133 ML ENEMA PR PRN (22:06)
[2019-10-14] MEDS ORDERED: ACETAMINOPHEN 650 MG SUPP.RECT PR PRN (22:06)
[2019-10-14] MEDS ORDERED: PSEUDOEPHEDRINE HCL 30 MG TABLET PO PRN (22:06)
[2019-10-14] MEDS ORDERED: DIBUCAINE 1% OINTMENT 28 GM TP PRN (22:06)
[2019-10-14] MEDS ORDERED: DIPH/PERTUSS(ACELL)/TETANUS VAC/PF 0.5 ML SYR (>=10YO) IM PRN (22:06)
[2019-10-14] MEDS ORDERED: BENZOCAINE/MENTHOL AEROSOL SPRAY 56 ML TOP PRN (22:06)
[2019-10-14] MEDS ORDERED: PROMETHAZINE HCL 25 MG SUPP.RECT PR PRN (22:06)
[2019-10-14] MEDS ORDERED: ACETAMINOPHEN WITH CODEINE #3 TABLET PO PRN (22:06)
[2019-10-14] MEDS ORDERED: DIPHENHYDRAMINE HCL 25 MG CAPSULE PO PRN (22:06)
[2019-10-14] MEDS ORDERED: PROMETHAZINE HCL INJ 25 MG/1 ML VIAL IV PRN (22:06)
[2019-10-14] MEDS ORDERED: FAMOTIDINE 20 MG TABLET PO ONE (22:15)
[2019-10-14] MEDS ORDERED: MAG HYDROX/AL HYDROX/SIMETH SUSP 30 ML UDCUP ONE (23:33)
--- NOTE | 2019-10-14 23:36 | Delivery Summary ---
Del Sum A-C Datetime Report Generated by CPN: 10/14/2019 23:35 DELIVERY PERSONNEL DELIVERY PERSONNEL: [id number] Delivery Doctor:: Karla Bull MD Labor and Delivery Nurse:: Nandini Flower RNbefore and after school daycare worker Nurse:: Marilyn Brown RNC Nursery Nurse:: Deepthi Vanegas RN Nursery Nurse:: Violette Brush RN MATERNAL INFORMATION Delivery Anesthesia: Epidural Medications After Delivery: Pitocin Bolus-Please Comment Meds After Delivery Comment: Pitocin 20 unuts Estimated Blood Loss (ml): 200 Delivery QBL: 200 Maternal Complications: None LABOR SUMMARY EDC: 11/02/2019 00:00 No. Babies in Womb: 1 Attempted: No Labor Anesthesia: Epidural LABOR INFORMATION Reason for Induction: Gestational Hypertension; Pre-Eclampsia Onset of Labor: 10/14/2019 19:38 Complete Dilatation: 10/14/2019 21:47 Oxytocin: Induction Group B Beta Strep: Negative Antibiotics # of Doses: n/a Steroids Given: None Reason Steroids Not Administered: Not Applicable MEMBRANES Membranes Rupture Method: Artificial Rupture of Membranes: 10/14/2019 21:47 Length of Rupture (hr): 0.10 Amniotic Fluid Color: Clear Amniotic Fluid Amount: Small Amniotic Fluid Odor: Normal STAGES OF LABOR Stage 1 hr: 2 Stage 1 min: 9 Stage 2 hr: 0 Stage 2 min: 6 Stage 3 hr: 0 Stage 3 min: 3 Total Time in Labor hr: 2 Total Time in Labor min: 18 VAGINAL DELIVERY Episiotomy: None Laceration #1: None Laceration Extension #1: N/A Laceration Repair: Not Applicable Sponge Count Correct: Yes Sharps Count Correct: Yes CSECTION DELIVERY Primary Indication: N/A Secondary Indication: N/A CSection Incidence: N/A Labor: N/A Elective: N/A CSection Incision: N/A BABY A INFORMATION Infant Delivery Date/Time: 10/14/2019 21:53 Method of Delivery: Vaginal Born in Route : No : N/A Forceps: N/A Vacuum Extraction: N/A Shoulder Dystocia : No PRESENTATION/POSITION BABY A Presentation: Cephalic Cephalic Presentation: Vertex Vertex Position: Right Occipital Anterior Breech Presentation: N/A PLACENTA INFORMATION BABY A Placenta Delivery Time : 10/14/2019 21:56 Placenta Method of Delivery: Spontaneous Placenta Status: Delivered SCORES BABY A Heart Rate 1 min: >100 bpm Resp Effort 1 min: Good Cry Reflex Irritability 1 min: Cough or Sneeze or Pulls Away Muscle Tone 1 min: Active Motion Color 1 min: Body [place], Extremities Blue Resuscitation Effort 1 min: Tactile Stimulation SCORE 1 MIN: 9 Heart Rate 5 min: >100 bpm Resp Effort 5 min: Good Cry Reflex Irritability 5 min: Cough or Sneeze or Pulls Away Muscle Tone 5 min: Active Motion Color 5 min: Body [place], Extremities Blue Resuscitation Effort 5 min: Tactile Stimulation SCORE 5 MIN: 9 INFORMATION BABY A Gestational Age at Delivery: 37.2 Gestational Status: Early Term- 37- 38.6 Weeks Outcome : Liveborn Condition : Stable Infant Sex: Female IDENTIFICATION BABY A Infant Verification Date/Time: 10/14/2019 21:59 ID Band Number: [id number] Mother's Name Verified: Yes Infant RN Verifying Infant: Wilfrid Leavitt RN, Robert Brown RN WEIGHT/LENGTH BABY A Infant Birthweight (gm): 2965 Infant Weight (lb): 6 Infant Weight (oz): 9 Length (in): 19.00 Infant Length (cm): 48.26 CORD INFORMATION BABY A No. Cord Vessels: 3 Nuchal Cord : N/A Cord Blood Taken: Yes-For Eval (Mom's Blood Type - or O+) Infant Suction: None ASSESSMENT BABY A Infant Complications: None Physical Findings at Delivery: Within Normal Limits Respirations: Appears Normal Skin to Skin: Yes Wind Commissioning Technician/ALS Called : No Infant Care By: FreddieCHRISTIANO Vanegas Transferred To: Remains with Mother BABY B INFORMATION : N/A SIGNATURES Signature: with User ID: [email or web address]
[2019-10-15] MEDS: ACETAMINOPHEN WITH CODEINE #3 TABLET PO PRN ×3 (01:53→23:28)
[2019-10-15] MEDS: IBUPROFEN 800 MG TABLET PO SCH ×3 (06:09→21:48)
[2019-10-15 07:08] LABS: HEMATOCRIT 32.7 % (36.0-47.0); HEMOGLOBIN 11.4 g/dL (12.0-15.5); MEAN CORPUSCULAR HEMOGLOBIN 31.3 pg (27.0-33.4); MEAN CORPUSCULAR HGB CONC 34.8 g/dL (32.0-36.0); MEAN CORPUSCULAR VOLUME 90 fl (80-97); PLATELET COUNT 307 10^3/uL (150-450); RED BLOOD COUNT 3.64 10^6/uL (3.72-5.28); RED CELL DISTRIBUTION WIDTH 13.2 % (11.5-14.0); WHITE BLOOD COUNT 16.3 10^3/uL (4.0-10.5)
--- NOTE | 2019-10-15 08:55 | PDOC PROGRESS REPORT ---
Subjective-OB Progress Note for:: 10/15/19 Subjective: Doing well, no c/o, bottle feeding, voiding, ambulating, scant lochia Physical Exam (OB) Vital Signs: Temp Pulse Resp BP Pulse Ox 97.6 F 79 16 125/69 98 10/15/19 07:27 10/15/19 07:27 10/15/19 07:27 10/15/19 07:27 10/15/19 07:27 Intake & Output 10/14/19 10/15/19 10/16/19 06:59 06:59 06:59 Intake Total 1000 Balance 1000 Weight 57.4 kg - PIH/Pre-Eclampsia Clonus: Negative Headache: Present Epigastric Pain: No Visual Changes: No - Lochia Lochia Amount: Small 10-25 ml Lochia Color: Rubra/Red - Abdomen Description: Soft, Round Hernia Present: No Fundal Description: Firm, Midline Fundal Height: u/u - u/2 Objective-Diagnostic Laboratory: 10/15/19 06:37 10/14/19 10/14/19 10/14/19 13:15 14:40 14:40 WBC 13.0 H RBC 3.96 Hgb 12.3 Hct 35.7 L MCV 90 MCH 31.1 MCHC 34.5 RDW 13.0 Plt Count 388 Urine Color YELLOW Urine Appearance CLEAR Urine pH 7.0 Ur Specific [place] 1.009 Urine Protein NEGATIVE Urine Glucose (UA) NEGATIVE Urine Ketones NEGATIVE Urine Blood NEGATIVE Urine Nitrite NEGATIVE Ur Leukocyte Esterase NEGATIVE Urine WBC (Auto) 1 Urine RBC (Auto) 0 Blood Type O NEGATIVE Antibody Screen POSITIVE 10/15/19 06:37 WBC 16.3 H RBC 3.64 L Hgb 11.4 L Hct 32.7 L MCV 90 MCH 31.3 MCHC 34.8 RDW 13.2 Plt Count 307 Urine Color Urine Appearance Urine pH Ur Specific [place] Urine Protein Urine Glucose (UA) Urine Ketones Urine Blood Urine Nitrite Ur Leukocyte Esterase Urine WBC (Auto) Urine RBC (Auto) Blood Type Antibody Screen Assessment and Plan(PN) - Assessment and Plan (1) Gestational [-induced] hypertension without significant proteinuria, third trimester Is this a current diagnosis for this admission?: Yes (2) Encounter for induction of labor Is this a current diagnosis for this admission?: Yes (3) Marijuana abuse Is this a current diagnosis for this admission?: Yes (4) Cocaine abuse complicating Qualifiers: Trimester: unspecified trimester Qualified Code(s): O99.320 - Drug use complicating , unspecified trimester; F14.10 - Cocaine abuse, uncomplicated Is this a current diagnosis for this admission?: Yes (5) Rh negative status during Qualifiers: Trimester: first trimester Qualified Code(s): O26.891 - Other specified related conditions, first trimester; Z67.91 - Unspecified blood type, Rh negative Is this a current diagnosis for this admission?: Yes (6) Vaginal delivery Is this a current diagnosis for this admission?: Yes - Time Spent with Patient Time with patient: Less than 15 minutes Medications reviewed and adjusted accordingly: Yes - Disposition Anticipated Discharge: Home Within: within 24 hours
[2019-10-15] MEDS: FAMOTIDINE 20 MG TABLET PO SCH ×2 (10:31→21:48)
[2019-10-15] MEDS: FERROUS SULFATE 325 MG TABLET PO SCH ×2 (10:31→17:40)
[2019-10-15] MEDS: SENNOSIDES/DOCUSATE 8.6-50 MG 1 EACH TABLET PO SCH (10:31)
[2019-10-15] MEDS: PRENATAL VITAMIN W DHA CAPSULE PO SCH (10:31)
[2019-10-15] MEDS: DOCUSATE SODIUM 100 MG CAPSULE PO SCH ×2 (10:31→17:40)
[2019-10-16] MEDS: ACETAMINOPHEN WITH CODEINE #3 TABLET PO PRN (04:20)
[2019-10-16] MEDS: IBUPROFEN 800 MG TABLET PO SCH ×2 (05:22→13:26)
[2019-10-16 06:43] VITALS: BP 124/89
--- NOTE | 2019-10-16 09:15 | PDOC DISCHARGE SUMMARY ---
Impression - Admit/DC Date/PCP Admission Date/Primary Care Provider: 10/14/19 13:42 EVELYN CHOU MD Discharge Date: 10/16/19 - PP Day #2, doing well today, no complaints, bottlefeeding, Hx GHTN w/ +cocaine/ +THC use prior to delivering - Additional Information Resuscitation Status: Full Code Discharge Diet: As Tolerated, Regular Discharge Activity: Activity As Tolerated, No Lifting Over 10 Pounds, Pelvic Rest Referrals: EVELYN CHOU MD [Primary Care Provider] - Prescriptions: Ibuprofen [Motrin 800 mg Tablet] 800 mg PO Q8 #60 tablet Home Medications: Pnv 102/Iron/Folate 1/Dss/Dha [Vitafol Fe+ Docusate Combo Pck] 1 each PO DAILY 10/10/19 Ibuprofen [Motrin 800 mg Tablet] 800 mg PO Q8 #60 tablet 10/16/19 HPI Reason(s) for Admission: Induction of Labor, Medical Complications, Obstetric Complications Admission Note: Hx GHTN Procedures: NST, Ultrasound Intrapartum Procedure(s): Spontaneous Vaginal Delivery Hospital Course Hospital Course: routine PP course Results Laboratory Results: WBC 16.3 10^3/uL (4.0-10.5) H 10/15/19 06:37 RBC 3.64 10^6/uL (3.72-5.28) L 10/15/19 06:37 Hgb 11.4 g/dL (12.0-15.5) L 10/15/19 06:37 Hct 32.7 % (36.0-47.0) L 10/15/19 06:37 MCV 90 fl (80-97) 10/15/19 06:37 MCH 31.3 pg (27.0-33.4) 10/15/19 06:37 MCHC 34.8 g/dL (32.0-36.0) 10/15/19 06:37 RDW 13.2 % (11.5-14.0) 10/15/19 06:37 Plt Count 307 10^3/uL (150-450) 10/15/19 06:37 Urine Color YELLOW 10/14/19 13:15 Urine Appearance CLEAR 10/14/19 13:15 Urine pH 7.0 (5.0-9.0) 10/14/19 13:15 Ur Specific [place] 1.009 10/14/19 13:15 Urine Protein NEGATIVE mg/dL (NEGATIVE) 10/14/19 13:15 Urine Glucose (UA) NEGATIVE mg/dL (NEGATIVE) 10/14/19 13:15 Urine Ketones NEGATIVE mg/dL (NEGATIVE) 10/14/19 13:15 Urine Blood NEGATIVE (NEGATIVE) 10/14/19 13:15 Urine Nitrite NEGATIVE (NEGATIVE) 10/14/19 13:15 Urine Bilirubin NEGATIVE (NEGATIVE) 10/14/19 13:15 Urine Urobilinogen NEGATIVE mg/dL (<2.0) 10/14/19 13:15 Ur Leukocyte Esterase NEGATIVE (NEGATIVE) 10/14/19 13:15 Urine WBC (Auto) 1 /HPF 10/14/19 13:15 Urine RBC (Auto) 0 /HPF 10/14/19 13:15 Squamous Epi Cells Auto <1 /HPF 10/14/19 13:15 Urine Creatinine 42.4 mg/dL (16-327) 10/14/19 13:15 Protein/Creatinin Ratio 0.3 mg/mg (0.0-0.2) H 10/14/19 13:15 Urine Total Protein 14.3 mg/dL (<12) H 10/14/19 13:15 Urine Ascorbic Acid NEGATIVE (NEGATIVE) 10/14/19 13:15 Urine Opiates Screen NEGATIVE 10/14/19 13:15 Urine Methadone Screen NEGATIVE 10/14/19 13:15 Ur Barbiturates Screen NEGATIVE 10/14/19 13:15 Ur Phencyclidine Scrn NEGATIVE 10/14/19 13:15 Ur Amphetamines Screen NEGATIVE 10/14/19 13:15 U Benzodiazepines Scrn NEGATIVE 10/14/19 13:15 Urine Cocaine Screen UNCONFIRMED POSITIVE 10/14/19 13:15 U Marijuana (THC) Screen NEGATIVE 10/14/19 13:15 RPR NONREACTIVE (NONREACTIVE) 10/14/19 14:40 Blood Type O NEGATIVE 10/15/19 06:37 Antibody Screen POSITIVE 10/14/19 14:40 Antibody Identification Anti-M RHOGAM INDUCED ANTI-D 10/14/19 14:40 Antibody Identification Anti-M RHOGAM INDUCED ANTI-D 10/14/19 14:40 Screen NEGATIVE 10/15/19 06:37 Crossmatch See Detail 10/14/19 14:40 Plan Health Concerns: watch PP blood pressure, discourage drug abuse Plan of Treatment: d/c to home, f/up with [facility] in one week for a BP check Time Spent: Less than 30 Minutes
[2019-10-16] MEDS: DOCUSATE SODIUM 100 MG CAPSULE PO SCH (09:25)
[2019-10-16] MEDS: SENNOSIDES/DOCUSATE 8.6-50 MG 1 EACH TABLET PO SCH (09:25)
[2019-10-16] MEDS: FERROUS SULFATE 325 MG TABLET PO SCH (09:25)
[2019-10-16] MEDS: PRENATAL VITAMIN W DHA CAPSULE PO SCH (09:25)
[2019-10-16] MEDS: FAMOTIDINE 20 MG TABLET PO SCH (10:20)
== END 2019-10-16 13:35 | disposition home or self-care (01) | DRG 807 ==
LOC: LC 13:06 → LR 13:42 → 2S 10-15 00:32
PROVIDERS: ADMIT Obstetrics & Gynecology; ATTEND Obstetrics & Gynecology
PROC: 10E0XZZ Delivery of Products of Conception, External Approach (ICD-10-PCS; principal; 2019-10-14)
PROC: 3E033VJ Introduction of Other Hormone into Peripheral Vein, Percutaneous Approach (ICD-10-PCS; 2019-10-14)
PROC: 10907ZC Drainage of Amniotic Fluid, Therapeutic from Products of Conception, Via Natural or Artificial Opening (ICD-10-PCS; 2019-10-14)
PROC: 4A1HXCZ Monitoring of Products of Conception, Cardiac Rate, External Approach (ICD-10-PCS; 2019-10-14)
PROC: 3E0234Z Introduction of Serum, Toxoid and Vaccine into Muscle, Percutaneous Approach (ICD-10-PCS; 2019-10-15)
DX: O13.4 Gestational [pregnancy-induced] hypertension without significant proteinuria, complicating childbirth (principal); Z37.0 Single live birth; O26.893 Other specified pregnancy related conditions, third trimester; O99.324 Drug use complicating childbirth; F12.10 Cannabis abuse, uncomplicated; F14.10 Cocaine abuse, uncomplicated; Z67.41 Type O blood, Rh negative; O99.334 Smoking (tobacco) complicating childbirth; F17.210 Nicotine dependence, cigarettes, uncomplicated; Z88.8 Allergy status to other drugs, medicaments and biological substances; Z3A.37 37 weeks gestation of pregnancy
CPT/HCPCS: 36415; 80307; 80353; 81001; 82570; 84156; 85027; 85461; 86592; 86850; 86870; 86900; 86901; 86920; 86922; 94760; G0480; J0360; J2590; J2790; J3010; J3490

== ENCOUNTER 2019-11-05 14:47 | Emergency (ER) | payer MEDICAID ==
[2019-11-05] MEDS ORDERED: METOCLOPRAMIDE HCL ORAL SOLN 10 MG/10 ML UDCUP PO ONE ×2 (15:28→18:30)
[2019-11-05] MEDS ORDERED: MAG HYDROX/AL HYDROX/SIMETH SUSP 30 ML UDCUP PO ONE ×2 (15:28→18:30)
[2019-11-05] MEDS ORDERED: LIDOCAINE 2% VISCOUS SOLN 15 ML UDCUP PO ONE ×2 (15:28→18:30)
--- NOTE | 2019-11-05 15:30 | ER Document Report ---
ED Medical Screen (RME) - General Chief Complaint: Abdominal Pain Stated Complaint: UPPER GASTRIC PAIN Time Seen by Provider: 11/05/19 15:25 Primary Care Provider: EVELYN CHOU MD [Primary Care Provider] - Follow up as needed Mode of Arrival: Ambulatory Information source: Patient Notes: 34-year-old female with history of reflux presents emergency department with complaints of epigastric pain and vomiting for the past 4 days. She reports it started after she ate a quesadilla from [employer]. Patient reports she took Prilosec without relief of symptoms. Patient has generalized abdominal pain with palpation. Patient is vaginal from October 14. Denies diarrhea or fever. I have greeted and performed a rapid initial assessment of this patient. A comprehensive ED assessment and evaluation of the patient, analysis of test results and completion of the medical decision making process will be conducted by additional ED providers. TRAVEL OUTSIDE OF THE [place] IN LAST 30 DAYS: No - Related Data Allergies/Adverse Reactions: ondansetron HCl [From Zofran] Allergy (Verified 11/05/19 15:25) Past Medical History - Social History Family history: Reviewed & Not Pertinent - Past Medical History Cardiac Medical History: Pulmonary Medical History: Neurological Medical History: Renal/ Medical History: Reports: Hx Kidney Stones - Required lithotripsy. Denies: Hx Peritoneal Dialysis GI Medical History: Reports: Hx Gastroesophageal Reflux Disease Musculoskeltal Medical History: Past Surgical History: Reports: Hx Abdominal Surgery - gastroschesis, Hx Appendectomy, Hx Cholecystectomy - Immunizations Immunizations up to date: Yes Hx Diphtheria, Pertussis, Tetanus Vaccination: Yes Physical Exam - Vital signs Vitals: Temp Pulse Resp BP Pulse Ox 98.2 F 61 14 152/94 H 97 11/05/19 15:00 11/05/19 15:00 11/05/19 15:00 11/05/19 15:00 11/05/19 15:00 Course - Vital Signs Vital signs: Temp Pulse Resp BP Pulse Ox 98.2 F 61 14 152/94 H 97 11/05/19 15:00 11/05/19 15:00 11/05/19 15:00 11/05/19 15:00 11/05/19 15:00 Doctor's Discharge - Discharge Referrals: EVELYN CHOU MD [Primary Care Provider] - Follow up as needed
[2019-11-05 17:04] LABS: APPEARANCE,URINE CLEAR; BILIRUBIN,URINE NEGATIVE (NEGATIVE); COLOR,URINE YELLOW; GLUCOSE, URINE NEGATIVE (NEGATIVE); KETONES,URINE NEGATIVE (NEGATIVE); LEUKOCYTE ESTERASE,URINE NEGATIVE (NEGATIVE); NITRITE,URINE NEGATIVE (NEGATIVE); PROTEIN,URINE 30 mg/dL (NEGATIVE); URINE SPECIFIC GRAVITY 1.021; UROBILINOGEN,URINE NEGATIVE mg/dL (<2.0)
[2019-11-05 17:06] LABS: ABSOLUTE BASOPHILS # (AUTO) 0.1 10^3/uL (0.0-0.2); ABSOLUTE EOSINOPHILS # (AUTO) 0.3 10^3/uL (0.0-0.6); ABSOLUTE LYMPHOCYTES (AUTO) 2.6 10^3/uL (0.5-4.7); ABSOLUTE MONOCYTES (AUTO) 0.6 10^3/uL (0.1-1.4); ABSOLUTE NEUT (AUTO) 5.5 10^3/uL (1.7-8.2); BASOPHILS % (AUTO) 0.8 % (0-2); EOSINOPHILS % (AUTO) 3.6 % (0-6); HEMATOCRIT 44.3 % (36.0-47.0); HEMOGLOBIN 15.6 g/dL (12.0-15.5); LYMPHOCYTES % (AUTO) 28.9 % (13-45); MEAN CORPUSCULAR HEMOGLOBIN 31.2 pg (27.0-33.4); MEAN CORPUSCULAR HGB CONC 35.3 g/dL (32.0-36.0); MEAN CORPUSCULAR VOLUME 88 fl (80-97); MONOCYTES % (AUTO) 6.7 % (3-13); PLATELET COUNT 419 10^3/uL (150-450); RED BLOOD COUNT 5.01 10^6/uL (3.72-5.28); RED CELL DISTRIBUTION WIDTH 13.9 % (11.5-14.0); TOTAL CELLS COUNTED % (AUTO) 100 %; WHITE BLOOD COUNT 9.1 10^3/uL (4.0-10.5)
[2019-11-05 17:14] LABS: ALBUMIN 4.5 g/dL (3.5-5.0); ALKALINE PHOSPHATASE 112 U/L (38-126); ANION GAP 7 (5-19); ASPARTATE AMINO TRANSFERASE 32 U/L (14-36); BILIRUBIN,DIRECT 0.1 mg/dL (0.0-0.4); BILIRUBIN,TOTAL 0.5 mg/dL (0.2-1.3); BLOOD UREA NITROGEN 8 mg/dL (7-20); CALCIUM 11.1 mg/dL (8.4-10.2); CARBON DIOXIDE 30 mmol/L (22-30); CHLORIDE 101 mmol/L (98-107); GLUCOSE 103 mg/dL (75-110); POTASSIUM 5.1 mmol/L (3.6-5.0); TOTAL PROTEIN 7.5 g/dL (6.3-8.2)
[2019-11-05] MEDS ORDERED: DEXTROSE 5%-LACTATED RINGERS 1,000 ML IV ONE (21:21)
[2019-11-05] MEDS ORDERED: PROMETHAZINE HCL 25 MG TABLET PO ONE (21:23)
[2019-11-05] MEDS ORDERED: FAMOTIDINE INJ/PF 20 MG/2 ML SDV IV ONE (21:24)
[2019-11-05] MEDS ORDERED: MORPHINE SULFATE 10 MG/ML INJ IV ONE (21:24)
--- NOTE | 2019-11-05 22:05 | RADIOLOGY REPORT (SQ) ---
EXAM DESCRIPTION: CLINICAL HISTORY: 34 years Female, EPIGASTRIC PAIN/POST 18 DAYS COMPARISON: [facility] 04/27/2019. FINDINGS: Chest x-ray without acute findings. No evidence for subdiaphragmatic free air. Moderate distention of the stomach with increased fluid. Suspected increased fluid in small bowel loops. Distended transverse colon with fluid levels. Postsurgical changes in the pelvis possibly previous . Soft tissue fullness presumably residual large uterus. IMPRESSION: Nonspecific increased fluid and bowel dilatation. Obstruction versus ileus pattern. Soft tissue thickening in the pelvis may represent residual large uterus or other finding.
[2019-11-05] MEDS ORDERED: NORMAL SALINE 500 ML IV ONE (23:22)
--- NOTE | 2019-11-06 01:48 | RADIOLOGY REPORT (SQ) ---
EXAM DESCRIPTION: CT ABDOMEN PELVIS WITHOUT IV CONTRAST COMPLETED DATE/TME: 11/06/2019 00:00 CLINICAL HISTORY: 34 years, Female, epigastric abd pain/ air fluid levels present.1 month post . COMPARISON: July 04, 2018 TECHNIQUE: Images stored on PACS. All CT scanners at this facility use dose modulation, iterative reconstruction, and/or weight based dosing when appropriate to reduce radiation dose to as low as reasonably achievable (ALARA). [facility]: Dose Right [facility]: CareDose [facility]: Dose Right [facility]: Teradose 4D [facility]: [employer] LIMITATIONS: None. FINDINGS: Abdomen: The lung bases are grossly clear. The heart is of normal size. No evidence of pleural or pericardial fluid. The liver is of normal size contour and attenuation. The gallbladder appears be surgically absent. The pancreas is not well seen. The spleen is unremarkable. The adrenals are unremarkable. The kidneys appear grossly normal without evidence of urolithiasis or hydronephrosis. There is no evidence of free air. Small amount of free fluid. No bulky adenopathy. Abdominal aorta is nonaneurysmal. Pelvis: The bowel is nonobstructed. The bowel is unopacified with oral contrast. Pelvic contents are unremarkable. The appendix is not seen. No pericecal inflammatory change. Several edematous loops of small bowel are identified predominantly jejunum. These are adverse change from prior.. Visualized bones are unremarkable. IMPRESSION: Presumed enteritis. No high-grade obstruction.. TECHNICAL DOCUMENTATION: Quality ID # [id number]: Final reports with documentation of one or more dose reduction techniques (e.g., Automated exposure control, adjustment of the mA and/or kV according to patient size, use of iterative reconstruction technique) copyright 2011 [employer]- All Rights Reserved
--- NOTE | 2019-11-06 02:29 | ER Document Report ---
Entered by RASHI KOENIG SCRIBE 11/05/192054 Acting as scribe for:FRANKO CASE MD ED General - General Chief Complaint: Abdominal Pain Stated Complaint: UPPER GASTRIC PAIN Time Seen by Provider: 11/05/19 15:25 Primary Care Provider: EVELYN CHOU MD [Primary Care Provider] - Follow up as needed Mode of Arrival: Ambulatory Information source: Patient Notes: 33-year-old female that is 3 weeks and has hypertension presents to the emergency department with epigastric pain that began 3 days ago. Patient describes that she is in "a lot of pain", "can't even drink water without it hurting" and said that "it could be from the food built up at top of stomach". Patient states that pain began after eating a quesadilla 3 days ago. Patient reports that her stools are brown, she vomited yesterday once and denies fevers. TRAVEL OUTSIDE OF THE [place] IN LAST 30 DAYS: No - Related Data Allergies/Adverse Reactions: ondansetron HCl [From Zofran] Allergy (Verified 11/05/19 15:25) Past Medical History - General Information source: Patient - Social History Smoking Status: Current Every Day Smoker Cigarette use (# per day): Yes Chew tobacco use (# tins/day): No Frequency of alcohol use: None Drug Abuse: None Lives with: Spouse/Significant other Family History: Reviewed & Not Pertinent Patient has suicidal ideation: No Patient has homicidal ideation: No - Past Medical History Cardiac Medical History: Pulmonary Medical History: Neurological Medical History: Renal/ Medical History: Reports: Hx Kidney Stones - Required lithotripsy GI Medical History: Reports: Hx Gastroesophageal Reflux Disease Musculoskeletal Medical History: Past Surgical History: Reports: Hx Abdominal Surgery - gastroschesis, Hx Appendectomy, Hx Cholecystectomy - Immunizations Immunizations up to date: Yes Hx Diphtheria, Pertussis, Tetanus Vaccination: Yes Review of Systems - Review of Systems Constitutional: See HPI. denies: Chills, Fever EENT: No symptoms reported Cardiovascular: No symptoms reported Respiratory: No symptoms reported Gastrointestinal: See HPI, Abdominal pain, Vomiting. denies: Black stools Genitourinary: No symptoms reported Female Genitourinary: denies: Vaginal discharge Musculoskeletal: No symptoms reported Skin: No symptoms reported Hematologic/Lymphatic: No symptoms reported Neurological/Psychological: No symptoms reported -: Yes All other systems reviewed and negative Physical Exam - Vital signs Vitals: Temp Pulse Resp BP Pulse Ox 98.2 F 61 14 152/94 H 97 11/05/19 15:00 11/05/19 15:00 11/05/19 15:00 11/05/19 15:00 11/05/19 15:00 - Notes Notes: Physical Exam: General: Alert, appears well. HEENT: Normocephalic. Atraumatic. PERRL. Extraocular movements intact. Oropharynx clear. Neck: Supple. Non-tender. Respiratory: No respiratory distress. Clear and equal breath sounds bilaterally. Cardiovascular: Regular rate and rhythm. Abdominal: Mild epigastric tenderness to palpation. No rebound. No distension. Normal Bowel Sounds. Back: No gross abnormalities. Extremities: Moves all four extremities. Upper extremities: Normal inspection. Normal ROM. Lower extremities: Normal inspection. No edema. Normal ROM. Neurological: Normal cognition. AAOx4. Normal speech. Psychological: Normal affect. Normal Mood. Skin: Warm. Dry. Normal color. Course - Re-evaluation Re-evalutation: 11/06/19 02:22 Patient reports that she has no further abdominal pain feels much better at this time. Nausea vomiting or diarrhea at this time. 11/06/19 02:25 Discussed patient's labs which showed a calcium of 11.1. Patient is continuing to take vitamins. I explained the patient that she might want to take her vitamins every other day inasmuch as her calcium is elevated at this time of 11.1 do recommend she follow-up with her health clinic for further evaluation of abnormal lab. - Vital Signs Vital signs: Temp Pulse Resp BP Pulse Ox 97.6 F 79 17 128/79 H 99 11/06/19 00:22 11/06/19 00:22 11/06/19 00:22 11/06/19 00:22 11/06/19 00:22 - Laboratory Result Diagrams: 11/05/19 16:33 11/05/19 16:33 Laboratory results interpreted by me: 11/05/19 11/05/19 11/05/19 16:33 16:33 16:33 Hgb 15.6 H Potassium 5.1 H Calcium 11.1 H Urine Protein 30 H Urine HCG, Qual POSITIVE H - Diagnostic Test Radiology reviewed: Image reviewed, Reports reviewed Radiology results interpreted by me: 11/06/19 02:23 Acute abdominal series disclose no acute process no evidence of any cardiopu lmonary disease on chest and abdomen shows nonspecific bowel gas pattern with air-fluid levels in the small intestines consistent with either an ileus or obstruction. CT scan of abdomen and pelvis disclose enteritis of the small bowel with no obstruction seen. No other acute inflammatory process noted. Discharge - Discharge Clinical Impression: Viral gastroenteritis Condition: Stable Disposition: HOME, SELF-CARE Admitting Provider: [facility] Instructions: Gastroenteritis (adult) ([facility]), Vomiting ([facility]) Prescriptions: Promethazine HCl 12.5 mg PO TID PRN 3 Days #10 tablet PRN Reason: nausea and vomiting Referrals: EVELYN CHOU MD [Primary Care Provider] - Follow up as needed I personally performed the services described in the documentation, reviewed and edited the documentation which was dictated to the scribe in my presence, and it accurately records my words and actions.
[2019-11-06 03:31] VITALS: BP 130/84
== END 2019-11-06 03:30 | disposition home or self-care (01) ==
LOC: ER 14:47
DX: O99.63 Diseases of the digestive system complicating the puerperium (principal); A08.4 Viral intestinal infection, unspecified; O90.89 Other complications of the puerperium, not elsewhere classified; R10.13 Epigastric pain; R10.816 Epigastric abdominal tenderness; R11.10 Vomiting, unspecified; O16.5 Unspecified maternal hypertension, complicating the puerperium; O99.335 Smoking (tobacco) complicating the puerperium; F17.210 Nicotine dependence, cigarettes, uncomplicated; Z79.899 Other long term (current) drug therapy; Z88.8 Allergy status to other drugs, medicaments and biological substances
CPT/HCPCS: 36415; 83605; 83690; 85025; 81025; 80053; 81001; 74022; 74176; J3490 ×4; J2270; J7121; J7040; S0028; 99284

== ENCOUNTER → 2019-11-30 | Outpatient (CLI) | payer MEDICAID | LOC: LAB 13:03 | PROVIDERS: ATTEND Nurse Practitioner Family | DX: L02.411 Cutaneous abscess of right axilla (principal) | CPT/HCPCS: 87070; 87077; 87186; 87205 ==

== ENCOUNTER 2020-09-06 09:13 | Inpatient (IN) | payer MEDICAID ==
[2020-09-06] MEDS ORDERED: RINGERS SOLUTION,LACTATED 1,000 ML IV ONE (09:23)
[2020-09-06] MEDS ORDERED: RINGERS SOLUTION,LACTATED 1,000 ML IV PRN (09:23)
[2020-09-06] MEDS ORDERED: BETAMET ACET/BETAMET NA INJ 6 MG/1 ML ONE (09:28)
[2020-09-06] MEDS ORDERED: BETAMET ACET/BETAMET NA INJ 6 MG/1 ML IM ONE (09:30)
[2020-09-06] MEDS ORDERED: LIDOCAINE 1% INJ-PF (10 MG/ML) 30 ML SDV ONE (09:34)
[2020-09-06] MEDS ORDERED: MISOPROSTOL 0.2 MG TABLET ONE (09:34)
[2020-09-06] MEDS ORDERED: PENICILLIN G-K 5 MILLION UNIT VIAL ONE (09:34)
[2020-09-06] MEDS ORDERED: OXYTOCIN/0.9 % SODIUM CHLORIDE 30 UNIT/500 ML RTUINJ ONE (09:34)
[2020-09-06] MEDS ORDERED: OXYTOCIN 10 UNIT/ML VIAL ONE (09:34)
[2020-09-06 10:11] LABS: ABSOLUTE BASOPHILS # (AUTO) 0.1 10^3/uL (0.0-0.2); ABSOLUTE EOSINOPHILS # (AUTO) 0.2 10^3/uL (0.0-0.6); ABSOLUTE LYMPHOCYTES (AUTO) 1.9 10^3/uL (0.5-4.7); ABSOLUTE MONOCYTES (AUTO) 0.9 10^3/uL (0.1-1.4); ABSOLUTE NEUT (AUTO) 11.5 10^3/uL (1.7-8.2); BASOPHILS % (AUTO) 0.5 % (0-2); EOSINOPHILS % (AUTO) 1.3 % (0-6); HEMATOCRIT 34.1 % (36.0-47.0); HEMOGLOBIN 11.9 g/dL (12.0-15.5); LYMPHOCYTES % (AUTO) 12.8 % (13-45); MEAN CORPUSCULAR HEMOGLOBIN 31.7 pg (27.0-33.4); MEAN CORPUSCULAR VOLUME 91 fl (80-97); MONOCYTES % (AUTO) 6.3 % (3-13); PLATELET COUNT 229 10^3/uL (150-450); RED BLOOD COUNT 3.77 10^6/uL (3.72-5.28); RED CELL DISTRIBUTION WIDTH 12.8 % (11.5-14.0); SEGMENTED NEUTROPHILS % (AUTO) 79.1 % (42-78); TOTAL CELLS COUNTED % (AUTO) 100 %; WHITE BLOOD COUNT 14.6 10^3/uL (4.0-10.5)
[2020-09-06] MEDS ORDERED: EPHEDRINE SULFATE INJ 50 MG/1 ML AMPULE ONE (10:26)
[2020-09-06] MEDS ORDERED: FENTANYL/BUPIVACAINE/NS/PF 300 MCG/150 ML RTUINJ EPI ONE (10:27)
[2020-09-06] MEDS ORDERED: ROPIVACAINE HCL 0.2% INJ/PF (2 MG/ML) 20 ML SDV ONE (10:27)
--- NOTE | 2020-09-06 10:40 | Admission Physical ---
Datetime Report Generated by CPN: 09/06/2020 10:40 CURRENT ADMISSION Hx Assessment: The History has been Reviewed and is Current Chief Complaint: Uterine Contractions Chief Complaint Other: at 34.0 wks EGA in active labor. Poor PNC unless obtained elsewhere. Records from [facility] show few visits. Admit Impression : , Intrauterine ; Active Labor Admit Plan: Admit to Unit; Initiate Labor Protocol ALLERGIES Medication Allergies: Yes Medication Allergies: ondansetron HCl (11/05/2019) Latex: No Latex Allergies OBSTETRICAL HISTORY EDC: 10/18/2020 00:00 : 7 Para: 4 Term: 4 : 0 SAB: 2 IAB: 0 Ectopic: 0 Livin Cesareans: 0 VBACs: 0 Multiple Births: 0 Gestational Diabetes: No Rh Sensitization: No Incompetent Cervix: No CANDIS: No Infertility: No ART Treatment: No Uterine Anomaly: No IUGR: No Hx Previous C/S: No Macrosomia: No Hx Loss/Stillborn: No PIH: No Hx : No Placenta Previa/Abruption: No Depression/PP Depression: No PTL/PROM: No Post Hemorrhage: No Current Procedures: Ultrasound Obstetrical History Comments: G1- G2- G3-SAB G4-SAB G5- G6- G7- SEE RECORDS Alcohol: No Marijuana : Yes Marijuana Frequency: 3 - 5 Times Per Week Last Used: 09/04/2020 00:00 Previous Treatment: None Cocaine: No Other Illicit Drugs: No Cigarettes: Current Some Day Smoker. [id number] Cigarette Frequency: > 10 per day Advised to Stop: Yes MEDICAL HISTORY Diabetes: No Blood Transfusion: No Pulmonary Disease (Asthma, TB): No Breast Disease: No Hypertension: No [employer] Surgery: No Heart Disease: No Hosp/Surgery: Yes Autoimmune Disorder: No Anesthetic Complications: No Kidney Disease: Yes Abnormal Pap Smear: No Neuro/Epilepsy: No Psychiatric Disorders: No Other Medical Diseases: No Hepatitis/Liver Disease: No Significant Family History: No Varicosities/Phlebitis: No Trauma/Violence : No Thyroid Dysfunction: No Medical History Comments: gastro, appendix and gall bladder removed; Kidney stones blasted INFECTIOUS HISTORY Gonorrhea: No Genital Herpes: No Chlamydia: No Tuberculosis: No Syphilis: No Hepatitis: No HIV/AIDS Exposure: No Rash or Viral Illness: No HPV: No Infectious History Comments: something last was given pills pt states PHYSICAL EXAM General: Normal HEENT: Normal Neurologic: Normal Thyroid: Normal Heart: Normal Lungs: Normal Breast: Normal Back: Normal Abdomen: Normal Genitourinary Exam: Normal Extremities: Normal DTRs: Normal Pelvic Type: Adequate Vital Signs: Reviewed; Within Normal Limits VAGINAL EXAM Dilatation: 6 Effacement: 90 Station: 0 Contraction Comments: REGULAR CONTRACTIONS q 4-5 MIN MEMBRANES Membranes: Bulging FETUS A EGA: 34.0 Monitoring: External US FHR- Baseline: 150 Variability: Moderate 6-25bpm Accelerations: 15X15 Decelerations: None FHR Category: Category I Presentation: Vertex Admit Comment: at 34.0 wks EGA in active labor -Admit to LDR -NPO and IVFs: LR at 125 cc/hr after 1 liter bolus -CEFM and toco -GBS unknown: start PCN 500,000 units IV -Give betamethasone 12 mg IM now. WIll repeat in 24 if still but unlikely -Hx of 4 prior SVDs. Anticipate -Desires epidural PLANS FOR LABOR AND DELIVERY Labor and Delivery: None Pain Management: Epidural Feeding Preference: Formula Benefit of Breast Feed Discussed: Yes INFORMED CONSENT Informed Consent Obtained: Vaginal Delivery; Section Delivery; Vacuum/Forceps Assist; Risks, Benefits and Alternatives Discussed Signature: with User ID: [email or web address] : with User ID: [email or web address]
[2020-09-06 12:41] LABS: URINE BARBITURATES SCREEN NEGATIVE; URINE BENZODIAZEPINES SCREEN NEGATIVE; URINE COCAINE SCREEN NEGATIVE; URINE METHADONE SCREEN NEGATIVE; URINE PHENCYCLIDINE SCREEN NEGATIVE
[2020-09-06 12:48] LABS: URINE MARIJUANA (THC) SCREEN UNCONFIRMED POSITIVE
[2020-09-06] MEDS ORDERED: PENICILLIN G POTASSIUM 2,500,000 UNIT in DEXTROSE 5%-WATER 50 ML IV SCH (13:25)
[2020-09-06] MEDS ORDERED: MEASLES,MUMPS&RUBELLA VACC/PF 0.5 ML VIAL SUBCUT PRN (15:26)
[2020-09-06] MEDS ORDERED: OXYTOCIN/0.9 % SODIUM CHLORIDE 30 UNIT/500 ML RTUINJ IV PRN (15:26)
[2020-09-06] MEDS ORDERED: ACETAMINOPHEN WITH CODEINE #3 TABLET PO PRN ×2 (15:26)
[2020-09-06] MEDS ORDERED: MAGNESIUM HYDROXIDE SUSP 30 ML UDCUP PO PRN (15:26)
[2020-09-06] MEDS ORDERED: PSEUDOEPHEDRINE HCL 30 MG TABLET PO PRN (15:26)
[2020-09-06] MEDS ORDERED: NA PHOS,M-B/NA PHOS,DI-BA (ADULT) 133 ML ENEMA PR PRN (15:26)
[2020-09-06] MEDS ORDERED: ZOLPIDEM TARTRATE 5 MG TABLET PO PRN (15:26)
[2020-09-06] MEDS ORDERED: PROMETHAZINE HCL INJ 25 MG/1 ML VIAL IV PRN (15:26)
[2020-09-06] MEDS ORDERED: PROMETHAZINE HCL 25 MG TABLET PO PRN (15:26)
[2020-09-06] MEDS ORDERED: DIPHENHYDRAMINE HCL 25 MG CAPSULE PO PRN (15:26)
[2020-09-06] MEDS ORDERED: BENZOCAINE/MENTHOL AEROSOL SPRAY 56 ML TOP PRN (15:26)
[2020-09-06] MEDS ORDERED: ACETAMINOPHEN 650 MG SUPP.RECT PR PRN (15:26)
[2020-09-06] MEDS ORDERED: ACETAMINOPHEN 325 MG TABLET PO PRN (15:26)
[2020-09-06] MEDS ORDERED: PROMETHAZINE HCL 25 MG SUPP.RECT PR PRN (15:26)
[2020-09-06] MEDS ORDERED: GLYCERIN/WITCH HAZEL LEAF 1 EACH MED..WIPE TP PRN (15:26)
[2020-09-06] MEDS ORDERED: DIPH/PERTUSS(ACELL)/TETANUS VAC/PF 0.5 ML SYR (>=10YO) IM PRN (15:26)
[2020-09-06] MEDS ORDERED: DIBUCAINE 1% OINTMENT 28 GM TP PRN (15:26)
--- NOTE | 2020-09-06 16:07 | Delivery Summary ---
Del Sum A-C Datetime Report Generated by CPN: 09/06/2020 16:07 DELIVERY PERSONNEL DELIVERY PERSONNEL: [id number] Delivery Doctor:: Samreen Thurston MD PAINT TESTER:: Carolynn Blair CRNA Labor and Delivery Nurse:: Charley Whelan RNcommissioner of relocation services Nurse:: Ashley Patino RN Neonatal Nurse Practitioner:: VENKAT Escobedo Nursery Nurse:: Palak Davis RN Piercer/RAILROAD WHEELS AND AXLES INSPECTOR: Heaven Nelson, JACQUARD CARD LACER MATERNAL INFORMATION Delivery Anesthesia: Epidural Medications After Delivery: Pitocin 30 Units in 500ml NS/D5W Estimated Blood Loss (ml): 200 Delivery QBL: 200 Maternal Complications: None Provider Comments: Called to patients room as she was completely dilated iwth membranes bulging from the vagina with contractions and urge to push. Bulging bag was ruptued: dark blood tinged fluid. Pushed through one contraction and delivered viable male infant . Infant was vigorously crying. Cord clamped and passed to nursery staff for assistnance. Fundus firm . No repair . Mother stable. to NICU with NICU staff in stable condition. LABOR SUMMARY EDC: 10/18/2020 00:00 No. Babies in Womb: 1 Attempted: No Labor Anesthesia: Epidural LABOR INFORMATION Reason for Induction: Not Applicable Complete Dilatation: 09/06/2020 13:13 Oxytocin: N/A Group B Beta Strep: unknown Antibiotics # of Doses: 2 Antibiotics Time of Last Dose: 09/06/2020 13:30 Name of Antibiotic Given: PCN G Steroids Given: Partial Course Reason Steroids Not Administered: Imminent Delivery MEMBRANES Membranes Rupture Method: Artificial Rupture of Membranes: 09/06/2020 14:34 Length of Rupture (hr): 0.10 Amniotic Fluid Color: Clear Amniotic Fluid Amount: Moderate Amniotic Fluid Odor: Normal STAGES OF LABOR Stage 2 hr: 1 Stage 2 min: 27 Stage 3 hr: 0 Stage 3 min: 4 VAGINAL DELIVERY Episiotomy: None Laceration #1: None Laceration Extension #1: N/A Laceration Repair: Not Applicable Sponge Count Correct: Yes Sharps Count Correct: N/A CSECTION DELIVERY Primary Indication: N/A Secondary Indication: N/A CSection Incidence: N/A Labor: N/A Elective: N/A CSection Incision: N/A BABY A INFORMATION Delivery Date/Time: 09/06/2020 14:40 Method of Delivery: Vaginal Nurse Controlled Delivery: No Born in Route : No : N/A Forceps: N/A Vacuum Extraction: N/A Shoulder Dystocia : No PRESENTATION/POSITION BABY A Presentation: Cephalic Cephalic Presentation: Vertex Vertex Position: Right Occipital Anterior Breech Presentation: N/A PLACENTA INFORMATION BABY A Placenta Delivery Time : 09/06/2020 14:44 Placenta Method of Delivery: Spontaneous Placenta Status: Delivered SCORES BABY A Heart Rate 1 min: >100 bpm Resp Effort 1 min: Good Cry Reflex Irritability 1 min: Cough or Sneeze or Pulls Away Muscle Tone 1 min: Active Motion Color 1 min: Body [place], Extremities Blue Resuscitation Effort 1 min: Tactile Stimulation SCORE 1 MIN: 9 Heart Rate 5 min: >100 bpm Resp Effort 5 min: Good Cry Reflex Irritability 5 min: Cough or Sneeze or Pulls Away Muscle Tone 5 min: Active Motion Color 5 min: Body [place], Extremities Blue Resuscitation Effort 5 min: N/A SCORE 5 MIN: 9 INFORMATION BABY A Gestational Age at Delivery: 34.0 Gestational Status: Late - 34- 36.6 Weeks Outcome : Liveborn Condition : Stable Sex: Male IDENTIFICATION BABY A Infant Verification Date/Time: 09/06/2020 14:50 ID Band Number: [id number] Mother's Name Verified: Yes RN Verifying : M. Osmani RN, A. Roberton RN WEIGHT/LENGTH BABY A Infant Birthweight (gm): 1990 Weight (lb): 4 Weight (oz): 6 Length (in): 17.50 Length (cm): 44.45 CORD INFORMATION BABY A No. Cord Vessels: 3 Nuchal Cord : N/A Cord Blood Taken: Yes-For Eval (Mom's Blood Type - or O+) Suction: Mouth; Nose ASSESSMENT BABY A Transferred To: NICU BABY B INFORMATION : N/A SIGNATURES Signature: with User ID: [email or web address] : with User ID: [email or web address]
--- NOTE | 2020-09-06 16:07 | Birth Certificate Data ---
Cert Data Datetime Report Generated by CARY: 09/06/2020 16:07 CERTIFICATE DATA Delivery Provider: Samreen Thurston MD (09/06/2020 09:28:Charley Whelan RN) 47a. Care: No (09/06/2020 09:28:Charley Whelan RN) 47b. Date of First Visit: 05/07/2020 00:00 (09/06/2020 09:28:Charley Whelan RN) 47d. Number of Visits: 6 (Annotations: Data stored by Barbara on behalf of user) (09/06/2020 09:28:Charley Whelan RN) 48a. Number of Prev Live Births: 4 (09/06/2020 09:28:Laura Yancey RN) 48b. Now Livin (09/06/2020 09:28:Laura Yancey RN) 48c. Live Births Now : 0 (09/06/2020 09:28:QS system process) 48d. Date of Last Live : 10/14/2019 00:00 (09/06/2020 09:28:Laura Yancey RN) 48e. Losses: 0 (09/06/2020 09:28:Laura Yancey RN) RISK FACTORS IN THIS 49a. Diabetes: No (09/06/2020 09:28:Laura Yancey RN) 49b. Hypertension: No (09/06/2020 09:28:Laura Yancey RN) 49c. Previous Births: 0 (09/06/2020 09:28:Laura Yancey RN) 49d. Stillborns: No (09/06/2020 09:28:Laura Yancey RN) 49d. IUGR: No (09/06/2020 09:28:Laura Yancey RN) 49e. Infertility Treatment: No (09/06/2020 09:28:Laura Yancey RN) 49f. Previous Cesareans: 0 (09/06/2020 09:28:Laura Yancey RN) Mother's Height 50b. Height Inches: 62 (09/06/2020 11:36:QS system process) Mother's Weight 51a. Pre- Weight (lbs): 112 (09/06/2020 09:28:Violette Keen RN) 51b. Weight at Delivery (lbs): 130 (09/06/2020 11:36:QS system process) 52. Dt Last Normal Menses Began: 12/10/2019 00:00 (09/06/2020 09:28:Violette Keen RN) Infections Present/Treated 53a. Gonorrhea: No (09/06/2020 09:28:Laura Yancey RN) Results this Hospital Visit : Negative (09/06/2020 09:28:Violette Keen RN) 53b. Syphilis: No (09/06/2020 09:28:Laura Yancey RN) 53c. Chlamydia: No (09/06/2020 09:28:Laura Yancey RN) Results this Hospital Visit: Negative (09/06/2020 09:28:Violette Keen RN) 53d. Hepatitis B: No (09/06/2020 09:28:Laura Yancey RN) Results this Hospital Visit: Negative (09/06/2020 09:28:Laura Yancey RN) 53j. Test Result: Negative (09/06/2020 09:28:Laura Yancey RN) Obstetric Procedures 54a, b, c. Obstetric Procedures: Ultrasound (09/06/2020 09:28:Laura Yancey RN) Cigarette Smoking Cigarette Smoking: Current Some Day Smoker. [id number] (09/06/2020 09:28:Laura Yancey RN) 55a. Packs: 1 (09/06/2020 09:28:December CHRISTIANO Morocho) 55b. Packs: 1 (09/06/2020 09:28:Opal CHRISTIANO Morocho) 55c. Packs: 1/2 (09/06/2020 09:28:December CHRISTIANO Morocho) 55d. Packs: 1/2 (09/06/2020 09:28:Opal Morocho RN) Onset of Labor 56a. PROM >12 Hrs: 0.10 (09/06/2020 09:28:QS system process) 57a. Induction of Labor: N/A (09/06/2020 09:28:Violette Keen RN) 57c. Non-Vertex Presentation A: Vertex (09/06/2020 09:28:Charley Whelan RN) 57d. Steroids - Lung Mat: Partial Course (09/06/2020 09:28:Violette Keen RN) 57d. Steroids - Lung Mat: Celestone 12mg IM - Dose 1 (09/06/2020 09:32:Laura Yancey RN) 57d. Steroids - Lung Mat: Imminent Delivery (09/06/2020 09:28:Violette Keen RN) 57e. Antibiotics During Labor: 09/06/2020 13:30 (09/06/2020 09:28:Charley Whelan RN) 57f. Mat [place] or Temp >100.4: 98.2 (09/06/2020 09:28:Violette Keen RN) 57g. Moderate/Heavy Meconium: Clear (09/06/2020 14:34:Charley Whelan RN) 57h. Intolerance of Labor: N/A (09/06/2020 09:28:Violette Keen RN) : N/A (09/06/2020 09:28:Violette Keen RN) 57i. Epidural/Spinal Anesthesia: Epidural (09/06/2020 09:28:Violette Keen RN) Method of Delivery 58a. Forceps - Unsuccessful A: N/A (09/06/2020 09:28:Charley Whelan RN) 58b. Vacuum - Unsuccessful A: N/A (09/06/2020 09:28:Charley Whelan RN) 58c. Presentation at 58c. Presentation at - A : Vertex (09/06/2020 09:28:Charley Whelan RN) 58c. Presentation at - A : N/A (09/06/2020 09:28:Charley Whelan RN) 58c. Presentation at - A : Cephalic (09/06/2020 13:13:Charley Whelan RN) Final Route and Method of Del 58d. Baby A Route/Delivery: Vaginal (09/06/2020 14:40:Charley Whelan RN) 58e. Trial of Labor Attempted: No (09/06/2020 09:28:Violette Keen RN) 58e. Trial of Labor Attempted A: N/A (09/06/2020 09:28:Violette Keen RN) 58e. Trial of Labor Attempted B: N/A (09/06/2020 09:28:Violette Keen RN) Maternal Morbidity 59b. 3rd or 4th Degree Lacs: None (09/06/2020 09:28:Charley Whelan RN) 59b. 3rd or 4th Degree Lacs: N/A (09/06/2020 09:28:Charley Whelan RN) Birthweight Baby A: 1990 (09/06/2020 09:28:Palak Davis RN) 60a. Pounds : 4 (09/06/2020 09:28:QS system process) 60b. Ounces: 6 (09/06/2020 09:28:QS system process) 61. GA at Delivery Baby A: 34.0 (09/06/2020 09:28:Charley Whelan RN) : Late - 34- 36.6 Weeks (09/06/2020 09:28:QS system process) 62a. 5 Minute Baby A: 9 (09/06/2020 09:28:QS system process)
[2020-09-06] MEDS: IBUPROFEN 800 MG TABLET PO SCH ×2 (18:35→21:32)
[2020-09-06] MEDS: DOCUSATE SODIUM 100 MG CAPSULE PO SCH (18:37)
[2020-09-06] MEDS: FERROUS SULFATE 325 MG TABLET PO SCH (18:38)
[2020-09-06] MEDS: FAMOTIDINE 20 MG TABLET PO SCH (21:32)
[2020-09-07] MEDS: IBUPROFEN 800 MG TABLET PO SCH ×2 (05:33→14:43)
[2020-09-07 07:05] LABS: HEMATOCRIT 31.4 % (36.0-47.0); MEAN CORPUSCULAR VOLUME 91 fl (80-97); PLATELET COUNT 248 10^3/uL (150-450); RED BLOOD COUNT 3.45 10^6/uL (3.72-5.28); RED CELL DISTRIBUTION WIDTH 13.1 % (11.5-14.0); WHITE BLOOD COUNT 20.5 10^3/uL (4.0-10.5)
[2020-09-07] MEDS ORDERED: PRENATAL VITAMIN W DHA CAPSULE PO SCH (10:00)
[2020-09-07] MEDS ORDERED: SENNOSIDES/DOCUSATE 8.6-50 MG 1 EACH TABLET PO SCH (10:00)
[2020-09-07] MEDS: FERROUS SULFATE 325 MG TABLET PO SCH ×2 (11:06→18:18)
[2020-09-07] MEDS: DOCUSATE SODIUM 100 MG CAPSULE PO SCH ×2 (11:06→18:18)
[2020-09-07] MEDS: FAMOTIDINE 20 MG TABLET PO SCH (11:06)
--- NOTE | 2020-09-07 15:06 | PDOC PROGRESS REPORT ---
Subjective-OB Progress Note for:: 09/07/20 Subjective: reports bleeding slowing, pain controlled with current meds. denies needs Physical Exam (OB) Vital Signs: Temp Pulse Resp BP Pulse Ox 98.2 F 68 16 134/80 H 100 09/07/20 12:30 09/07/20 12:00 09/07/20 12:00 09/07/20 12:00 09/07/20 12:00 Intake & Output 09/06/20 09/07/20 09/08/20 06:59 06:59 06:59 Intake Total 300 780 Output Total 600 Balance -300 780 Weight 59.4 kg - Maternal Morbidity 59. Maternal Morbidity (serious complications experinced by the mother associated with labor and delivery: None of the above - Abdomen Description: Soft Hernia Present: No Fundal Description: Firm, Midline Fundal Height: u/u - u/2 - Abdominal Distension: No distension Tenderness: Nontender - Extremities Lower extremities: Fabricio's sign - neg Calf: Normal, Nontender Objective-Diagnostic Laboratory: 09/07/20 06:37 09/07/20 09/07/20 06:37 08:50 WBC 20.5 H RBC 3.45 L Hgb 11.0 L Hct 31.4 L MCV 91 MCH 32.0 MCHC 35.0 RDW 13.1 Plt Count 248 Blood Type O NEGATIVE Assessment and Plan(PN) - Time Spent with Patient Time with patient: Less than 15 minutes - Disposition Anticipated Discharge Disposition: Home, Self Care Anticipated Discharge Timeframe: within 24 hours
[2020-09-07 16:53] VITALS: BP 138/89
--- NOTE | 2020-09-07 17:05 | PDOC DISCHARGE SUMMARY ---
Impression - Admit/DC Date/PCP Admission Date/Primary Care Provider: 09/06/20 09:28 KELLEE ENRIQUEZ MD Discharge Date: 09/07/20 - Discharge Diagnosis (1) Drug use during Is this a current diagnosis for this admission?: Yes (2) Marijuana abuse Is this a current diagnosis for this admission?: Yes (3) Rh negative status during Is this a current diagnosis for this admission?: Yes (4) Vaginal delivery Is this a current diagnosis for this admission?: Yes - Additional Information Discharge Diet: Regular Discharge Activity: Balance Activity w/Rest, Pelvic Rest Referrals: [facility] [Provider Group] (Please call and schedule a 4 week f/u at [facility]. ) Prescriptions: Ibuprofen [Motrin 800 mg Tablet] 800 mg PO Q8HP PRN #60 tablet PRN Reason: Home Medications: Omeprazole Magnesium [Prilosec Otc] 20 mg PO DAILY 11/05/19 Ibuprofen [Motrin 800 mg Tablet] 800 mg PO Q8HP PRN #60 tablet 09/07/20 Hospital Course 59. Maternal Morbidity (serious complications experinced by the mother associated with labor and delivery: None of the above Results Laboratory Results: WBC 20.5 10^3/uL (4.0-10.5) H 09/07/20 06:37 RBC 3.45 10^6/uL (3.72-5.28) L 09/07/20 06:37 Hgb 11.0 g/dL (12.0-15.5) L 09/07/20 06:37 Hct 31.4 % (36.0-47.0) L 09/07/20 06:37 MCV 91 fl (80-97) 09/07/20 06:37 MCH 32.0 pg (27.0-33.4) 09/07/20 06:37 MCHC 35.0 g/dL (32.0-36.0) 09/07/20 06:37 RDW 13.1 % (11.5-14.0) 09/07/20 06:37 Plt Count 248 10^3/uL (150-450) 09/07/20 06:37 Lymph % (Auto) 12.8 % (13-45) L 09/06/20 09:49 Clay % (Auto) 6.3 % (3-13) 09/06/20 09:49 Eos % (Auto) 1.3 % (0-6) 09/06/20 09:49 Baso % (Auto) 0.5 % (0-2) 09/06/20 09:49 Absolute Neuts (auto) 11.5 10^3/uL (1.7-8.2) H 09/06/20 09:49 Absolute Lymphs (auto) 1.9 10^3/uL (0.5-4.7) 09/06/20 09:49 Absolute Monos (auto) 0.9 10^3/uL (0.1-1.4) 09/06/20 09:49 Absolute Eos (auto) 0.2 10^3/uL (0.0-0.6) 09/06/20 09:49 Absolute Basos (auto) 0.1 10^3/uL (0.0-0.2) 09/06/20 09:49 Seg Neutrophils % 79.1 % (42-78) H 09/06/20 09:49 Urine Opiates Screen NEGATIVE 09/06/20 10:57 Urine Methadone Screen NEGATIVE 09/06/20 10:57 Ur Barbiturates Screen NEGATIVE 09/06/20 10:57 Ur Phencyclidine Scrn NEGATIVE 09/06/20 10:57 Ur Amphetamines Screen 09/06/20 10:57 U Benzodiazepines Scrn NEGATIVE 09/06/20 10:57 Urine Cocaine Screen NEGATIVE 09/06/20 10:57 U Marijuana (THC) Screen UNCONFIRMED POSITIVE 09/06/20 10:57 RPR NONREACTIVE (NONREACTIVE) 09/06/20 09:49 Blood Type O NEGATIVE 09/07/20 08:50 Antibody Screen POSITIVE 09/06/20 09:49 Antibody Identification Anti-M RHOGAM INDUCED ANTI-D 09/06/20 09:49 Antibody Identification Anti-M RHOGAM INDUCED ANTI-D 09/06/20 09:49 Screen NEGATIVE 09/07/20 08:50 Rhogam Indicated Cancelled 09/07/20 08:50 Crossmatch See Detail 09/06/20 09:49 Plan Health Concerns: pt asking to go home. baby in NICU. Plan of Treatment: follow up in 4 weeks at [facility] for post check
[2020-09-10 07:09] LABS: AMPHETAMINE CONFIRMATION UR Positive (.); CANNABINOID CONFIRMATION UR Positive (.)
== END 2020-09-07 18:17 | disposition home or self-care (01) | DRG 806 ==
LOC: LC 09:13 → LR 09:28 → 2S 17:59
PROVIDERS: ADMIT Obstetrics & Gynecology; ATTEND Obstetrics & Gynecology
PROC: 10E0XZZ Delivery of Products of Conception, External Approach (ICD-10-PCS; principal; 2020-09-06)
PROC: 3E0234Z Introduction of Serum, Toxoid and Vaccine into Muscle, Percutaneous Approach (ICD-10-PCS; 2020-09-07)
DX: O60.14X0 Preterm labor third trimester with preterm delivery third trimester, not applicable or unspecified (principal); O99.324 Drug use complicating childbirth; Z37.0 Single live birth; F12.90 Cannabis use, unspecified, uncomplicated; O99.334 Smoking (tobacco) complicating childbirth; F17.210 Nicotine dependence, cigarettes, uncomplicated; O26.893 Other specified pregnancy related conditions, third trimester; Z3A.34 34 weeks gestation of pregnancy; Z67.41 Type O blood, Rh negative
CPT/HCPCS: 1967; 36415; 80307; 80349; 85025; 85027; 85461; 86592; 86850; 86870; 86900; 86901; 86920; 86922; 88307; 94760; G0480; J0702; J2540; J2590; J2790; J2795; J3010; J3490; J7060